=== PATIENT | male | born 1990 ===

== ENCOUNTER → 2020-08-09 08:06 | Outpatient (BNVA) | payer OTHER, SELFPAY | PROVIDERS: PCP Nurse Practitioner Family; Visit Provider Surgery ==

== ENCOUNTER → 2020-09-26 11:39 | Outpatient (BNVA) | payer OTHER, SELFPAY | PROVIDERS: PCP Nurse Practitioner Family; Visit Provider Physician Assistant ==

== ENCOUNTER 2020-09-27 07:54 | Outpatient (REF) | payer OTHER, SELFPAY ==
[2020-09-27 11:48] LABS: Alanine Aminotransferase 43 U/L (0-40); Albumin Level 4.4 g/dL (3.5-5.0); Alkaline Phosphatase 85 U/L (39-117); Anion Gap 15 (12-20); Aspartate Amino Transferase 22 U/L (5-37); Bilirubin Total 0.4 mg/dL (0.0-1.0); Blood Urea Nitrogen 17 mg/dL (9-16); Calcium 9.1 mg/dL (8.4-10.2); Carbon Dioxide 28 mmol/L (22-29); Chloride 102 mmol/L (96-108); Cholesterol 201 mg/dL; Estimated Glomerular Filt Rate > 60; Glucose Fasting 91 mg/dL (60-99); HDL Cholesterol 41 mg/dL; LDL Cholesterol Calculated 131 mg/dl; Potassium 4.6 mmol/L (3.3-5.1); Sodium 140 mmol/L (135-145); Total Protein 7.5 g/dL (6.5-8.0); Triglycerides 146 mg/dL
[2020-09-27 11:51] LABS: TSH reflex Free T4 1.57 uIU/mL (0.32-4.0)
== END 2020-09-27 07:55 | disposition home or self-care (01) ==
LOC: HO.HMGCLDS 07:54
PROVIDERS: PCP Nurse Practitioner Family; Visit Provider Nurse Practitioner Family
DX: Z00.00 Encounter for general adult medical examination without abnormal findings (principal); Z13.220 Encounter for screening for lipoid disorders; Z13.29 Encounter for screening for other suspected endocrine disorder
CPT/HCPCS: 36415; 80053; 80061; 84443

== ENCOUNTER → 2020-10-18 07:49 | Outpatient (BNVA) | payer OTHER, SELFPAY | PROVIDERS: PCP Nurse Practitioner Family; Visit Provider Surgery ==

== ENCOUNTER → 2022-06-16 08:35 | Outpatient (BNVA) | payer SELFPAY | PROVIDERS: PCP Nurse Practitioner Family; Visit Provider Internal Medicine | DX: Z02.79 Encounter for issue of other medical certificate (principal) ==

== ENCOUNTER → 2022-07-29 08:26 | Outpatient (REF) | payer OTHER, SELFPAY | LOC: HO.SL 08:26 | PROVIDERS: Visit Provider Nurse Practitioner Family | DX: G47.33 Obstructive sleep apnea (adult) (pediatric) (principal); R06.83 Snoring; R40.0 Somnolence; E66.01 Morbid (severe) obesity due to excess calories | CPT/HCPCS: 95806 ==

== ENCOUNTER 2022-08-19 07:56 | Outpatient (REF) | payer OTHER, SELFPAY ==
[2022-08-19 11:22] LABS: Appearance Urine Clear; Color Urine Yellow; Glucose Urine UA Negative (Negative); Leukocyte Esterase Urine Negative (Negative); Nitrite Urine Negative (Negative); Urine Blood Negative (Negative); Urine Ketones Negative (Negative); Urine Protein Negative (Neg-Trace)
[2022-08-19 11:24] LABS: MANUAL DIFF FLAG NO
[2022-08-19 11:42] LABS: Basophils Absolute Auto 0.1 X10*3/uL (0.0-0.2); Basophils Percent Auto 0.8 % (0-2); Eosinophils Absolute Auto 0.2 X10*3/uL (0.0-0.4); Eosinophils Percent Auto 1.8 % (0-4); Hematocrit 45.4 % (42.0-52.0); Hemoglobin 14.8 g/dl (14.0-18.0); Imm Gran Abs Auto 0.06 X10*3/uL (0.00-0.03); Imm Gran Pct Auto 0.6 % (0.0-0.4); Lymphocytes Absolute Auto 3.3 X10*3/uL (1.2-4.9); Lymphocytes Percent Auto 33.7 % (20-40); Mean Corpuscular HGB Conc 32.6 g/dl (31.0-36.0); Mean Corpuscular Hemoglobin 29.7 pg (27.0-33.0); Mean Platelet Volume 9.6 fL (9.4-12.4); Monocytes Absolute Auto 0.7 X10*3/uL (0.1-1.2); Monocytes Percent Auto 7.5 % (2-11); Neutrophils Absolute Auto 5.4 x10*3/uL (2.0-8.3); Neutrophils Percent Auto 55.6 % (45-73); Platelet Count 439 X10*3/uL (160-400); Red Blood Count 4.99 X10*6/uL (4.60-5.80); Red Cell Distribution Width 12.7 % (11.0-16.0); White Blood Count 9.7 X10*3/uL (4.8-10.8)
[2022-08-19 11:59] LABS: Alanine Aminotransferase 43 U/L (0-40); Albumin Level 4.4 g/dL (3.5-5.0); Alkaline Phosphatase 97 U/L (39-117); Anion Gap 11 (12-20); Aspartate Amino Transferase 24 U/L (5-37); Bilirubin Total 0.5 mg/dL (0.0-1.0); Blood Urea Nitrogen 16 mg/dL (9-16); Calcium 9.4 mg/dL (8.4-10.2); Carbon Dioxide 28 mmol/L (22-29); Chloride 104 mmol/L (96-108); Cholesterol 203 mg/dL; Estimated Glomerular Filt Rate > 60; Glucose Fasting 99 mg/dL (60-99); HDL Cholesterol 35 mg/dL; LDL Cholesterol Calculated 146 mg/dl; Potassium 4.3 mmol/L (3.3-5.1); Sodium 139 mmol/L (135-145); Total Protein 7.3 g/dL (6.5-8.0); Triglycerides 111 mg/dL
== END 2022-08-19 07:57 | disposition home or self-care (01) ==
LOC: HO.HMGCLDS 07:56
PROVIDERS: PCP Nurse Practitioner Family; Visit Provider Nurse Practitioner Family
DX: Z00.00 Encounter for general adult medical examination without abnormal findings (principal)
CPT/HCPCS: 36415; 80053; 80061; 81003; 84443; 85025

== ENCOUNTER 2022-08-27 10:23 | Outpatient (REF) | payer OTHER, SELFPAY ==
--- NOTE | ~2022-08-27 | US_ITS ---
EXAMINATION: US ABDOMEN COMPLETE CLINICAL INFORMATION: Abnormal levels of other serum enzymes. COMPARISON: None TECHNIQUE: Real-time imaging of the abdominal viscera. FINDINGS: PANCREAS: Obscured by bowel gas. ABDOMINAL AORTA: The proximal, mid, and distal segments are normal in caliber. INFERIOR VENA CAVA: Visualized portions are normal. LIVER: The liver is normal in size. The liver contour is normal. There is diffuse increased liver parenchymal echogenicity, consistent with hepatic steatosis with focal fatty sparing. No definite focal lesion is seen, but evaluation is limited due to poor sound beam penetration through the coarse echogenic liver parenchyma. There is no intrahepatic biliary duct dilatation seen. GALLBLADDER: Normal. The gallbladder is physiologically distended without evidence of stones, sludge, polyps, wall thickening or pericholecystic fluid. COMMON BILE DUCT: Normal in caliber measuring 0.3 cm in diameter. RIGHT KIDNEY: Normal. No hydronephrosis. No renal calculi or focal parenchymal lesions. The kidney measures 13.4 cm in maximum dimension. LEFT KIDNEY: Normal. No hydronephrosis. No renal calculi or focal parenchymal lesions. The kidney measures 12.8 cm in maximum dimension. SPLEEN: Normal. The spleen measures 13.8 cm in maximum dimension. FREE FLUID: None. US/US abdomen complete IMPRESSION: Marked hepatic steatosis.
== END 2022-08-27 10:24 | disposition home or self-care (01) ==
LOC: HO.HMGCX 10:23
PROVIDERS: PCP Nurse Practitioner Family; Visit Provider Nurse Practitioner Family
DX: R74.8 Abnormal levels of other serum enzymes (principal)
CPT/HCPCS: 76700

== ENCOUNTER → 2022-10-22 10:13 | Outpatient (BNVA) | payer OTHER, SELFPAY | PROVIDERS: PCP Nurse Practitioner Family; Visit Provider Nurse Practitioner Family | DX: R40.0 Somnolence (principal); R06.83 Snoring; E66.01 Morbid (severe) obesity due to excess calories ==

== ENCOUNTER 2023-02-05 08:52 | Outpatient (AMB) | payer OTHER, SELFPAY ==
--- NOTE | 2023-02-05 08:53 | A.OFFVIS_ITS ---
Intake Vital Signs 02/05/23 08:57 Weight 323 lb 6 oz BP 120/72 Blood Pressure Location Rt brachial Position Sitting Pulse 80 Pulse Source Pulse Oximeter Pulse Oximetry (%) 97 Oxygen Delivery Method Room Air Intake Visit Reasons: 3m follow up ÁLVARO Intake Note: F/U ÁLVARO Glove [employer] And Former Automatic Required: No Allergies No Known Allergies Allergy (Verified 02/05/23 08:53) HPI HPI Comments History of Present Illness Details 32 y/o male patient presents for follow up ÁLVARO on CPAP. The CPAP compliance and therapy response (11/07/22-02/04/23) reviwed with the patient. He is on APAP [id number]. The usage days 82% and the usage hours 4 hrs. The median pressure is 6.3 and the AHI was 2.1/hr. Pt reports that he feels more rested at night and sleeps well. He also tried to use CPAP while he watches TV to get used to it. His daytime tiredness has improved, he is more energetic,alert and physically active. His mood is also improved. Pt is in processing to have gastric sleeves. [facility] Medical History Hyperlipidemia Morbid obesity Surgical History Hx of circumcision Family History Father No problems noted. Mother Stroke Diabetes mellitus HTN (hypertension) Brother No problems noted. Brother No problems noted. Sister No problems noted. Social History Housing: Apartment Alcohol intake: current Alcohol intake frequency: holidays/special occasions only Patient Tobacco Use Status: Never used Tobacco e-Cigarette/Vaping Use: Never Used Second Hand Smoke Exposure: No service: No Current occupational status: employed Current occupation: [employer] Current occupational exposures/hazards: Yes Cognitive needs: No Hearing needs: No Vision needs: No Review of Systems Const All systems reviewed & are unremarkable except as noted in HPI and below ENT Reports Normal hearing present Neuro Reports Normal hearing present Physical Exam Vital Signs: Last Vital Signs Pulse 80 02/05/23 08:57 BP 120/72 02/05/23 08:57 Pulse Ox 97 02/05/23 08:57 Oxygen Delivery Method Room Air 02/05/23 08:57 Const General: cooperative and comfortable Nutritional Appearance: obese Orientation/consciousness: patient oriented x3 Limitations: no limitations HEENT Throat: Yes other (mallampati grade 4) Neck Neck: Yes full ROM and Yes supple Resp Effort & Inspection: normal respiratory effort and able to speak in complete sentences Neuro General: patient oriented x3, gait normal, moves all extremities and no focal motor deficits Cranial nerves: Yes Bilaterally intact EOM present, Yes Normal facial strength present, Yes Midline tongue present, Yes Symmetric palate elevation present, Yes Normal hearing present, Yes Ability to bilaterally rotate head present and Yes Ability to bilaterally elevate shoulders present Cognition (Neuro): normal cognition Gait exam (Neuro): Normal gait present Motor exam (neuro): 5/5 motor strength present throughout and Pronator motor function not present Psych Appearance: grossly normal Mental Status: mental status grossly normal Speech and movement: Normal speech and movement present Affect: normal affect Attitude: cooperative Assessment & Plan Assessment & Plan (1) Morbid obesity: Code(s): E66.01 - Morbid (severe) obesity due to excess calories (2) Snoring: Code(s): R06.83 - Snoring Plan Continue to use APAP [id number]. Stressed compliance, use CPAP nightly and more than 4 hours. Clean mask and tubing regularly. Sleep hygiene education provided. Manage diet and increase physical activity for wt loss. Coding Level of Care Code Est Pt Level 3 (71637) Diagnoses Morbid obesity E66.01 Snoring R06.83
[2023-02-05 08:57] VITALS: BP 120/72; PULSE 80; O2SAT 97
== END 2023-02-05 09:14 | disposition home or self-care (01) ==
PROVIDERS: Visit Provider Nurse Practitioner Family
DX: E66.01 Morbid (severe) obesity due to excess calories (principal); R06.83 Snoring
CPT/HCPCS: 99213

== ENCOUNTER → 2023-02-05 08:52 | Outpatient (BNVA) | payer OTHER, SELFPAY | PROVIDERS: Visit Provider Nurse Practitioner Family | DX: R40.0 Somnolence (principal); R06.83 Snoring; E66.01 Morbid (severe) obesity due to excess calories ==

== ENCOUNTER → 2023-04-14 13:51 | Outpatient (BNVA) | payer SELFPAY | PROVIDERS: PCP Nurse Practitioner Family; Visit Provider Physician Assistant | DX: Z02.79 Encounter for issue of other medical certificate (principal) ==

== ENCOUNTER 2024-02-07 08:51 | Outpatient (AMB) | payer OTHER, SELFPAY ==
--- NOTE | 2024-02-07 09:00 | MHC.OFFVIS ---
Vital Signs 02/07/24 09:04 Height 6 ft 3 in Weight 304 lb BMI 38.0 BP 122/84 Blood Pressure Location Rt brachial Position Sitting Pulse 86 Pulse Source Pulse Oximeter Pulse Oximetry (%) 99 Oxygen Delivery Method Room Air Intake Visit Reasons: 1yr follow up ÁLVARO-CONF Intake Note: Patient presents for 1 year follow up ÁLVARO. Patient has machine but has not been using it due to having a in the house. Allergies No Known Allergies Allergy (Verified 02/07/24 09:07) Medication List - Last Reconciled 02/07/24 by MARIO Pineda No Known Home Meds HPI Comments Details: 33-yr-old male presents for follow-up visit of sleep apnea. Pt underwent gastric sleeve at [facility] on January 25, 2024. He denies any post-op complications- other than some post-op N/V. He has not been using his CPAP as regulalry d/t the of his youngest dtr 2 months ago and the recent gastric sleeve surgery. He states overall he is sleeping better. Did not tolertae the full face mask. Does find the nasal mask more tolerable, but generally the APAP is a nuisance . Compliance Report Usage 12/24/2023 - 01/22/2024 Usage days 7/30 days (23%) Usage days >= 4 hours : 6 days (20%) Usage days < 4 hours 1 days (3%) AirSense 11 AutoSet Serial number [id number] Mode AutoSet Min Pressure 5 cmH2O Max Pressure 20 cmH2O EPR Fulltime EPR level 2 Response Standard Therapy Residual events per hour: AHI: 3.1. [facility] Medical History (Updated 02/07/24 @ 09:57 by MARIO Pineda) Hyperlipidemia Morbid obesity Surgical History (Updated 02/07/24 @ 09:57 by MARIO Pineda) H/O gastric sleeve Hx of circumcision Family History Father No problems noted. Mother Stroke Diabetes mellitus HTN (hypertension) Brother No problems noted. Brother No problems noted. Sister No problems noted. Social History Housing: Apartment Alcohol intake: current Alcohol intake frequency: holidays/special occasions only Patient Tobacco Use Status: Never used Tobacco e-Cigarette/Vaping Use: Never Used Second Hand Smoke Exposure: No service: No Current occupational status: employed Current occupation: [employer] Current occupational exposures/hazards: Yes Cognitive needs: No Hearing needs: No Vision needs: No Physical Exam Vital Signs: Last Vital Signs Pulse 86 02/07/24 09:04 BP 122/84 02/07/24 09:04 Pulse Ox 99 02/07/24 09:04 Oxygen Delivery Method Room Air 02/07/24 09:04 BMI result Body Mass Index 38.0 Const General: no acute distress Orientation/consciousness: patient oriented x3 HEENT Other: Mallampati stage Resp Effort & Inspection: normal respiratory effort and able to speak in complete sentences Auscultation: clear to auscultation bilaterally Cardio Rate: regular rate Rhythm: regular rhythm Neuro General: patient oriented x3 Psych Mental Status: mental status grossly normal Speech and movement: Clear speech present Attitude: cooperative Results Reviewed Results Reviewed: PAP compliance report- see HPI Assessment & Plan Assessment & Plan (1) Mild obstructive sleep apnea: Code(s): G47.33 - Obstructive sleep apnea (adult) (pediatric) Category: Medical Plan Continue APAP 5-20 cmH2O nightly > 4 hours, as pt continues to have good clinical effect from use.. Discussed that once pt loses 10% of body weight from when he had the sleep study when weight was 329 lbs, we can consider repeating HST to assess status of sleep apnea. Increase physical activity per surgery. Clean CPAP machine and supplies routinely. Change CPAP supplies routinely. Pt to contact us or respiratory company with any questions or concerns. Coding Level of Care Code Est Pt Level 3 (67935) Diagnoses Mild obstructive sleep apnea G47.33
[2024-02-07 09:04] VITALS: BP 122/84; PULSE 86; O2SAT 99; BMI 38.0
== END 2024-02-07 09:52 | disposition home or self-care (01) ==
PROVIDERS: PCP Nurse Practitioner Family; Visit Provider Nurse Practitioner Family
DX: G47.33 Obstructive sleep apnea (adult) (pediatric) (principal)
CPT/HCPCS: 99213

== ENCOUNTER → 2024-02-07 08:51 | Outpatient (BNVA) | payer OTHER, SELFPAY | PROVIDERS: PCP Nurse Practitioner Family; Visit Provider Nurse Practitioner Family | DX: R40.0 Somnolence (principal); R06.83 Snoring; E66.01 Morbid (severe) obesity due to excess calories ==

== ENCOUNTER → 2024-08-24 08:34 | Outpatient (BNVA) | payer OTHER, SELFPAY | PROVIDERS: PCP Nurse Practitioner Family ==

== ENCOUNTER → 2024-08-29 15:49 | Outpatient (AMB) | payer OTHER, SELFPAY ==
[2024-08-29 14:59] VITALS: BP 138/90; PULSE 96; O2SAT 99; BMI 37.4
--- NOTE | 2024-08-29 14:59 | MHC.OFFVIS ---
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 He had Gastric Bypass surgical procedure on January 2024, and he is now 299lbs, he was 333lbs prior to his surgery. He reports that he feels more rested at night and sleeps well. He goes to bed at 9:30pm and wakes up 6:00am, with zero bathroom breaks. His BP is elevated today at 138/90 will monitor. Denies grinding his teeth. Denies headaches. Denies RLS symptoms. Denies muscle cramps or spasms. His memory is good. He tries to use his CPAP, however never did get used to consistent use. His daytime tiredness has improved, he is more energetic, alert and physically active. He doesn't eat as much fast-food, now eats a protein shake in the morning and then one at lunch and a well balanced dinner. He is good at meal prepping and walks daily on his treadmill, about 1 hour daily and keeping track of his steps 15,000. His mood is also improved, though he lost some family members in a fire in [place], he declines counseling today. Denies smoking cigarettes, MJ, and alcohol. [facility] Medical History Hyperlipidemia Morbid obesity Surgical History H/O gastric sleeve Hx of circumcision Family History Father No problems noted. Mother Stroke Diabetes mellitus HTN (hypertension) Brother No problems noted. Brother No problems noted. Sister No problems noted. Social History Housing: Apartment Alcohol intake: current Alcohol intake frequency: holidays/special occasions only Patient Tobacco Use Status: Never used Tobacco e-Cigarette/Vaping Use: Never Used Second Hand Smoke Exposure: No service: No Current occupational status: employed Current occupation: [employer] Current occupational exposures/hazards: Yes Cognitive needs: No Hearing needs: No Vision needs: No Review of Systems Const All systems reviewed & are unremarkable except as noted in HPI and below Physical Exam Vital Signs: Last Vital Signs Pulse 96 08/29/24 14:59 BP 138/90 H 08/29/24 14:59 Pulse Ox 99 08/29/24 14:59 Oxygen Delivery Method Room Air 08/29/24 14:59 BMI result Body Mass Index 37.4 Const General: cooperative, comfortable and no acute distress Nutritional Appearance: obese (BMI 37.4) Orientation/consciousness: patient oriented x3 HEENT Face and sinus: Yes normal facial exam and Yes face symmetric Throat: Yes other ([place] score of 4) Eyes Pupils: Equal, round and reactive pupils present Neck Neck: Yes full ROM Resp Effort & Inspection: normal respiratory effort and able to speak in complete sentences Neuro General: patient oriented x3 Cranial nerves: Yes CN's II-XII intact bilaterally, Yes Facial sensation intact/muscles of mastication intact, Yes Equal, round and reactive pupils present, Yes Normal accommodation reflex present, Yes Bilaterally intact EOM present, Yes Nystagmus not present, Yes Normal facial strength present, Yes Midline tongue present, Yes Ability to bilaterally rotate head present and Yes Ability to bilaterally elevate shoulders present Motor exam (neuro): 5/5 motor strength present throughout Deep tendon reflexes (DTR's): Right triceps reflex intensity grade: 2+, Left triceps reflex intensity grade: 2+, Rt Biceps (C5, C6): 2+, Left biceps reflex intensity grade: 2+, Right brachioradialis reflex intensity grade: 2+, Left brachioradialis reflex intensity grade: 2+, Right patellar reflex intensity grade: 3+, Left patellar reflex intensity grade: 3+, Right ankle reflex intensity grade: 2+ and Left ankle reflex intensity grade: 2+ Psych Thought process: Normal thought process present Thought content: Normal thought content present Results Reviewed Results Reviewed: The CPAP compliance and therapy response (05/25/2024- 2024) reviewed with the patient. He is on APAP [id number] The usage days 20% and the usage hours 2 hrs and 16min. The pressures are 9-13, Leaks are 15 - 104, AHI is 13.6 Assessment & Plan Assessment & Plan (1) Snoring: Code(s): R06.83 - Snoring Category: Medical (2) Mild obstructive sleep apnea: Code(s): G47.33 - Obstructive sleep apnea (adult) (pediatric) Category: Medical Plan ÁLVARO and Snoring will evaluate with Home Sleep Study Labs to rule out deficiencies B12/ MMA/ Folate/ Homocysteine/ Iron/ Ferritin/ TSH/ Vit D Orders: Orders RT home sleep study Today G47.33 - Obstructive sleep apnea (adult) (pediatric) Vitamin B12 and Folate Today G47.33 - Obstructive sleep apnea (adult) (pediatric), R06.83 - Snoring Methylmalonic Acid Today G47.9 - Sleep disorder, unspecified, R53.83 - Other fatigue IRON PROFILE Today G47.9 - Sleep disorder, unspecified, R53.83 - Other fatigue Ferritin Today G47.33 - Obstructive sleep apnea (adult) (pediatric), R06.83 - Snoring Homocysteine Today G47.33 - Obstructive sleep apnea (adult) (pediatric), R06.83 - Snoring Patient Instructions: Sleep Hygiene is emphasized, set a regimented sleep and wake time, no devices in bed, no fluids 2 hours prior to sleep, may read a book in bed. May diffuses essential oils as needed to relax at night. Grief processing is available on [employer]. Snoring, may use nose strips and mouth tape if tolerable, or mouth guard to help close the mouth at night. Monitor BP as it is elevated today 138/90. HTN is the #1 modifiable risk factor to prevent cardiovascular events. Hyper-reflexes of the Lower Extremities on Exam, bilaterally patellar reflexes will r/o deficiencies with labs. F/U in 3 months Coding Level of Care Code Est Pt Level 4 (51137) Diagnoses Snoring R06.83 Mild obstructive sleep apnea G47.33 Time Spent (min) 30 Comment
== END | disposition home or self-care (01) ==
PROVIDERS: PCP Nurse Practitioner Family; Visit Provider Nurse Practitioner Family
DX: R06.83 Snoring (principal); G47.33 Obstructive sleep apnea (adult) (pediatric)
CPT/HCPCS: 99214

== ENCOUNTER 2024-09-12 12:26 | Outpatient (REF) | payer OTHER, SELFPAY ==
[2024-09-12 14:11] LABS: MANUAL DIFF FLAG NO
[2024-09-12 14:40] LABS: Basophils Absolute Auto 0.1 X10*3/uL (0.0-0.2); Basophils Percent Auto 0.5 % (0-2); Eosinophils Absolute Auto 0.2 X10*3/uL (0.0-0.4); Eosinophils Percent Auto 1.6 % (0-4); Hematocrit 43.7 % (42.0-52.0); Hemoglobin 14.6 g/dl (14.0-18.0); Imm Gran Abs Auto 0.04 X10*3/uL (0.00-0.03); Imm Gran Pct Auto 0.4 % (0.0-0.4); Lymphocytes Absolute Auto 3.2 X10*3/uL (1.2-4.9); Lymphocytes Percent Auto 28.9 % (20-40); Mean Corpuscular HGB Conc 33.4 g/dl (31.0-36.0); Mean Corpuscular Hemoglobin 30.2 pg (27.0-33.0); Mean Corpuscular Volume 90.5 fL (80.0-98.0); Mean Platelet Volume 9.3 fL (9.4-12.4); Monocytes Absolute Auto 0.6 X10*3/uL (0.1-1.2); Monocytes Percent Auto 5.8 % (2-11); Neutrophils Absolute Auto 6.9 x10*3/uL (2.0-8.3); Neutrophils Percent Auto 62.8 % (45-73); Platelet Count 399 X10*3/uL (160-400); Red Blood Count 4.83 X10*6/uL (4.60-5.80); Red Cell Distribution Width 12.9 % (11.0-16.0); White Blood Count 10.9 X10*3/uL (4.8-10.8)
[2024-09-12 14:41] LABS: Basophils Absolute Auto 0.1 X10*3/uL (0.0-0.2); Basophils Percent Auto 0.5 % (0-2); Eosinophils Absolute Auto 0.2 X10*3/uL (0.0-0.4); Eosinophils Percent Auto 1.5 % (0-4); Hematocrit 44.1 % (42.0-52.0); Hemoglobin 14.7 g/dl (14.0-18.0); Imm Gran Abs Auto 0.04 X10*3/uL (0.00-0.03); Imm Gran Pct Auto 0.4 % (0.0-0.4); Lymphocytes Absolute Auto 3.1 X10*3/uL (1.2-4.9); Lymphocytes Percent Auto 28.5 % (20-40); Mean Corpuscular HGB Conc 33.3 g/dl (31.0-36.0); Mean Corpuscular Hemoglobin 30.2 pg (27.0-33.0); Mean Corpuscular Volume 90.6 fL (80.0-98.0); Mean Platelet Volume 9.2 fL (9.4-12.4); Monocytes Absolute Auto 0.6 X10*3/uL (0.1-1.2); Monocytes Percent Auto 5.5 % (2-11); Neutrophils Percent Auto 63.6 % (45-73); Platelet Count 398 X10*3/uL (160-400); Red Blood Count 4.87 X10*6/uL (4.60-5.80); Red Cell Distribution Width 12.7 % (11.0-16.0); White Blood Count 10.9 X10*3/uL (4.8-10.8)
[2024-09-12 14:41] LABS: Appearance Urine Turbid; Color Urine Yellow; Glucose Urine UA Negative (Negative); Leukocyte Esterase Urine Negative (Negative); Nitrite Urine Negative (Negative); PH 8.5 (5.0-9.0); Specific Gravity - Urine 1.025 (1.005-1.025); UMIC TRIGGER UACC YES; Urine Blood Negative (Negative); Urine Ketones Negative (Negative); Urine Protein 30 (1+) mg/dL (Neg-Trace)
[2024-09-12 14:43] LABS: Bacteria Urine None Seen (None Seen); Hyaline Casts Urine 0-2 /LPF (0-2); RBC Urine 0-2 /HPF (0-2); Squamous Epithelial Cell Urine 0-2 /HPF (0-2); WBC Urine 0-5 /HPF (0-5)
[2024-09-12 15:12] LABS: Alanine Aminotransferase 45 U/L (0-40); Albumin Level 4.3 g/dL (3.5-5.0); Alkaline Phosphatase 87 U/L (39-117); Anion Gap 13 (12-20); Aspartate Amino Transferase 33 U/L (5-37); Bilirubin Total 0.9 mg/dL (0.0-1.0); Blood Urea Nitrogen 14 mg/dL (9-16); Calcium 9.5 mg/dL (8.4-10.2); Carbon Dioxide 28 mmol/L (22-29); Chloride 104 mmol/L (96-108); Estimated Glomerular Filt Rate > 60; Glucose Fasting 82 mg/dL (60-99); Sodium 141 mmol/L (135-145)
[2024-09-12 15:16] LABS: Albumin Level 4.4 g/dL (3.5-5.0); Alkaline Phosphatase 86 U/L (39-117); Anion Gap 11 (12-20); Aspartate Amino Transferase 36 U/L (5-37); Bilirubin Total 0.8 mg/dL (0.0-1.0); Blood Urea Nitrogen 15 mg/dL (9-16); Calcium 9.6 mg/dL (8.4-10.2); Carbon Dioxide 29 mmol/L (22-29); Chloride 105 mmol/L (96-108); Cholesterol 210 mg/dL (<200); Estimated Glomerular Filt Rate > 60; Glucose Fasting 83 mg/dL (60-99); HDL Cholesterol 42 mg/dL (>40); Iron 63 mcg/dL (45-160); LDL Cholesterol Calculated 141 mg/dL (<100); Percent Iron Saturation 24 % (15-50); Potassium 3.9 mmol/L (3.3-5.1); Sodium 141 mmol/L (135-145); Total Iron Binding Capacity 262 mcg/dL (228-428); Total Protein 8.1 g/dL (6.5-8.0); Triglycerides 136 mg/dL (<150); Unsaturated Iron Binding 199 ug/dL
[2024-09-12 15:29] LABS: TSH reflex Free T4 0.76 uIU/mL (0.32-4.0); Vitamin D 25-OH Total 17.5 ng/mL (>30)
[2024-09-12 15:34] LABS: Alanine Aminotransferase 44 U/L (0-40); Ferritin 218 ng/mL (20-250); TSH reflex Free T4 0.79 uIU/mL (0.32-4.0)
[2024-09-12 15:36] LABS: Folate 7.7 ng/mL (> or = 4.0); Vitamin B12 629 pg/mL (200-900)
[2024-09-13 16:57] LABS: IgA 389 mg/dL (47-310); IgG 1135 mg/dL (600-1640); IgM 109 mg/dL (50-300)
[2024-09-13 21:09] LABS: A. Phagocytphilium DNA,RT-PCR NOT DETECTED (NOT DETECTED); Babesia Microti DNA, RT-PCR NOT DETECTED (NOT DETECTED); Borrelia Miyamotoi,DNA RT-PCR NOT DETECTED (NOT DETECTED); E.Chaffeensis DNA RT-PCR NOT DETECTED (NOT DETECTED); Lyme(Borrelia ssp)DNA RT-PCR NOT DETECTED (NOT DETECTED)
[2024-09-13 21:48] LABS: Lyme Abs Screen <0.90 index
[2024-09-13 22:23] LABS: Prot Elec - Albumin 4.3 g/dL (3.8-4.8); Prot Elec - Alpha1 0.3 g/dL (0.2-0.3); Prot Elec - Alpha2 0.7 g/dL (0.5-0.9); Prot Elec - Beta 1 0.5 g/dL (0.4-0.6); Prot Elec - Beta 2 0.5 g/dL (0.2-0.5); Prot Elec - Total Protein 7.3 g/dL (6.1-8.1)
[2024-09-15 12:52] LABS: Hematocrit 43.8 % (38.5-50.0); Hemoglobin 14.9 g/dL (13.2-17.1); MCH 30.7 pg (27.0-33.0); MCV 90.3 fL (80.0-100.0); RBC 4.85 Million/uL (4.20-5.80); RDW 12.9 % (11.0-15.0)
[2024-09-15 19:48] LABS: Methylmalonic Acid 97 nmol/L (55-335)
[2024-09-16 15:39] LABS: Vitamin B6 78.3 ng/mL (2.1-21.7)
== END 2024-09-12 12:27 | disposition home or self-care (01) ==
LOC: HO.HMGCLDS 12:26
PROVIDERS: PCP Nurse Practitioner Family; Referring Provider Physician Assistant; Visit Provider Nurse Practitioner Family
DX: Z00.00 Encounter for general adult medical examination without abnormal findings (principal); M62.838 Other muscle spasm; M62.81 Muscle weakness (generalized); Z98.84 Bariatric surgery status
CPT/HCPCS: 36415; 80053; 80061; 81001; 82306; 82550; 82607; 82728; 82746; 82784; 83020; 83090; 83540; 83735; 83921; 84165; 84207; 84443; 85014; 85018; 85025; 85041; 86334; 86617; 86618; 87468; 87469; 87478; 87484; 87798; 96127

== ENCOUNTER 2024-09-12 12:26 | Outpatient (AMB) | payer OTHER, SELFPAY ==
[2024-09-12 12:36] VITALS: BP 130/82; PULSE 86; TEMP 36.6; O2SAT 97; BMI 36.7
--- NOTE | 2024-09-12 12:36 | A.OFFPC_ITS ---
Vital Signs 09/12/24 12:36 Height 6 ft 3 in Weight 294 lb BMI 36.7 BP 130/82 Blood Pressure Location Lt brachial Position Sitting Pulse 86 Pulse Source Pulse Oximeter Temp 97.9 F Temp Source Oral Pulse Oximetry (%) 97 Oxygen Delivery Method Room Air Intake Visit Reasons: PE w/ labs Accompanied by: Self / Same As Patient Allergies No Known Allergies Allergy (Verified 09/12/24 12:36) Medication List - Last Reconciled 09/12/24 by MARIO Krishnan- multivitamin (One-A-Day Essential tablet) 1 tab PO DAILY Tobacco use date assessed: 09/12/24 Dental Screening Dental Screen Date: 09/12/24 Did you have a dental visit in the last 12 months?: Yes Did you have a dental problem in the last 6 months where you did not have access to dental care?: No Was dental information given to patient?: Patient has dentist HPI PE w/ labs HPI Details History of Present Illness PE: The patient is a 34-year-old male presenting with muscle spasms and neuropathic symptoms following bariatric surgery. The patient underwent a bariatric gastric sleeve procedure in January 2024. Approximately two months prior to the visit, he began experiencing significant muscle spasms, primarily in his bilateral upper extremities, but also occasionally affecting his entire body. The spasms are reported as random in occurrence. Additionally, the patient notices numbness and tngling in both his upper and lower extremities, which he also describes as more general weakness. There is a concern about potential vitamin or electrolyte deficiencies, possibly as a complication from the gastric surgery. He denies associated chest pain, shortness of breath, nausea, vomiting, diarrhea, constipation, anxiety, or depression. The patient reports being in otherwise good health and has a follow-up appointment with his gastro/bariatric surgeon within one to two months. Health Maintenance Social History Review of Systems - Neurological: Reports significant spas ms in bilateral upper extremities and sometimes whole body, random in nature. Reports numbness and tingling in upper and lower extremities. Denies headaches, dizziness, syncope, or seizures. - Cardiovascular: Denies chest pain or p alpitations. - Respiratory: Denies shortness of breat h. - Gastrointestinal: Denies nausea, vomit ing, diarrhea, constipation. - Psychiatric: Denies anxiety or depress ion. - Musculoskeletal: Reports weakness in e xtremities. Physical Exam General: Cooperative, healthy appearing, comfortable, no acute distress and well developed, obese Orientation: Patient oriented x3 Limitations: No limitations Head: Normal to inspection Ears: Hearing grossly normal bilaterally Nose: Normal external nose present Face and sinus: Normal facial exam Eyes: Appearance normal, both eyes and all related structures Neck: Normal visual inspection and Yes full ROM Respiratory: Normal respiratory effort and able to speak in complete sentences. Clear to auscultation bilaterally Cardiovascular: Regular rate and rhythm. Normal S1 and S2 GI: Normal to inspection. Soft to palpation and nontender Skin: No rashes or lesions noted Neuro: Patient oriented x3. CN2 through 12 intact. Patellar reflex is equal b ilaterally. Positive reflex noted to elbow. Tricep reflex present. Extremities: Significant spasms, especially in bilateral upper extremities. Reports numbness and tenderness in upper and lower extremities. Describes more weakness in extremities. Normal to inspection. Results Plan - Initiate lab tests to assess for poten tial vitamin deficiencies and electrolyte imbalances contributing to the patient's muscle spasms and neuropathic symptoms. - Perform a physical examination focusin g on neurological status to investigate the presence of peripheral neuropathy. - Schedule and coordinate follow-up care with the gastro/bariatric surgeon to address and manage potential complications related to post-bariatric nutritional deficiencies. Discussion Notes During the consultation, I discussed with the patient the likelihood that his symptoms may be due to nutritional deficiencies post-bariatric surgery. We agreed on obtaining laboratory investigations to confirm any deficiencies, specifically looking into vitamin and electrolyte levels. I emphasized the importance of follow-up with his bariatric surgeon for ongoing management. I reassured the patient regarding the positive effect of addressing nutritional deficiencies on his current symptoms of spasms and neuropathy. We did not discuss any medication changes at this time. The patient was advised to monitor his symptoms and return if they worsen or persist despite intervention. Patient Instructions - Undergo recommended lab tests to check for vitamin and electrolyte imbalances. - Follow up with the gastro/bariatric toscano rgeon in the next month to two months for comprehensive management. - Monitor for any new or worsening sympt oms and seek medical care if needed. - Maintain adherence to any prescribed v itamin supplements or dietary recommendations provided by the surgeon. -any worsening symptoms, ER please [facility] Medical History Hyperlipidemia Morbid obesity Surgical History H/O gastric sleeve Hx of circumcision Family History Father No problems noted. Mother Stroke Diabetes mellitus HTN (hypertension) Brother No problems noted. Brother No problems noted. Sister No problems noted. Social History Housing: Apartment Alcohol intake: current Alcohol intake frequency: holidays/special occasions only Patient Tobacco Use Status: Never used Tobacco e-Cigarette/Vaping Use: Never Used Second Hand Smoke Exposure: No service: No Current occupational status: employed Current occupation: [employer] Current occupational exposures/hazards: Yes Cognitive needs: No Hearing needs: No Vision needs: No Questionnaire PHQ-9 Over the last 2 weeks, how often have you been bothered by any of the following problems? 1. Little interest or pleasure in doing things: several days 2. Feeling down, depressed, or hopeless: several days 3. Trouble falling or staying asleep, or sleeping too much: not at all 4. Feeling tired or having little energy: not at all 5. Poor appetite or overeating: several days 6. Feeling bad about yourself - or that you are a failure or have let yourself or your family down: not at all 7. Trouble concentrating on things, such as reading the newspaper or watching television: not at all 8. Moving or speaking so slowly that other people could have noticed. Or the opposite - being so fidgety or restless that you have been moving around a lot m ore than usual: not at all 9. Thoughts that you would be better off or of hurting yourself in some way: not at all Total score: 3 Depression Screening Interpretation: Negative Depression Screening Done: Yes 69395 - PHQ-9 Billing: Yes Source: Developed by Drs. Ronnie Anguiano, Megan Bradford, Laureano Shepard and colleagues, with an educational mary from [employer]. Thrive Questionnaire Date Thrive assessed: 09/05/24 I am a: Patient What is your living situation today?: I choose not to answer this question Within the past 12 months, did the food you bought not last and you didn't have the money to get more?: I choose not to answer this question Within the past 12 months, did you worry whether your food would run out before you got money to buy more?: I choose not to answer this question Do you have trouble paying for medicines?: I choose not to answer this question Do you have trouble getting transportation to medical appointments?: I choose not to answer this question Do you have trouble paying your heating and electricity bill?: I choose not to answer this question Do you have trouble taking care of your child, family member or friend?: I choose not to answer this question Do you have trouble with day-to-day activities such as bathing, preparing meals, shopping, managing finances, etc.?: I choose not to answer this question Are you currently unemployed and looking for a job?: I choose not to answer this question Are you interested in more education?: I choose not to answer this question Please select the resources that you would like help with: None Currently or been in a relationship where the following occur: I choose not to answer THRIVE Score: 0 AUDIT C Alcohol Use Questionnaire (AUDIT-C) 1. How often do you have a drink containing alcohol?: Never 3. How often do you have six or more drinks on one occasion?: Never Total Score: 0 Score Reviewed/Action Taken: Yes ELIEL-7 AMB Questionnaire ELIEL-7 Date ELIEL - 7 assessed: 09/12/24 Feeling nervous, anxious, or on edge: 0 = Not at all Not being able to stop or control worryin = Not at all Worrying too much about different things: 0 = Not at all Trouble relaxin = Not at all Being so restless that it is hard to sit still: 0 = Not at all Becoming easily annoyed or irritable: 0 = Not at all Feeling afraid as if something awful might happen: 0 = Not at all Total ELIEL-7 score (0-4 normal; 5-9 mild; 10-14 moderate; 15-21 severe): 0 Source: Developed by Drs. Ronnie Anguiano, Megan Bradford, Laureano Shepard and colleagues, with an educational mary from [employer]. ELIEL-7 Assessment Billing ELIEL-7 Assessment Tool: ELIEL-7 Assessment 06580 Physical exam (Primary Care) BMI result Body Mass Index 36.7 Tobacco/Smoking Status: Tobacco use Status Tobacco use date assessed 08/17/22 09/12/24 12:36 Patient Tobacco Use Status Never used Tobacco 09/12/24 12:36 e-Cigarette/Vaping Use Never Used 09/12/24 12:36 Depression Screening Interpretation: Negative Thrive Assessment: Date of Thrive Assessment Date Thrive assessed 09/05/24 09/12/24 12:36 Currently or been in a relationship where the following occur: I choose not to answer Coding Level of Care Code New Pt Prev Care 18-39yr([id number] Diagnoses Muscle spasms of both lower extremities M62.838 Physical exam Z00.00 Proximal muscle weakness M62.81 Additional Codes ELIEL-7 Assessment Billing - ELIEL-7 Assessment Tool: ELIEL-7 Assessment 29469 ([id number]) PHQ-9 - 41977 - PHQ-9 Billing: Yes ([id number]) Assessment & Plan Assessment & Plan (1) Muscle spasms of both lower extremities: Code(s): M62.838 - Other muscle spasm Category: Medical (2) Physical exam: Code(s): Z00.00 - Encounter for general adult medical examination without abnormal findings Category: Medical (3) Proximal muscle weakness: Code(s): M62.81 - Muscle weakness (generalized) Category: Medical Plan . Orders: Orders Comprehensive [place]. Panel Fast Today Z00.00 - Encounter for general adult medical examination without abnormal findings UA CC w/rflx Micro + Cult Today Z00.00 - Encounter for general adult medical examination without abnormal findings Lipid Panel Today Z00.00 - Encounter for general adult medical examination without abnormal findings Methylmalonic Acid Today M62.838 - Other muscle spasm Ferritin Today M62.838 - Other muscle spasm IRON PROFILE Today M62.838 - Other muscle spasm Creatine Kinase Total Today M62.838 - Other muscle spasm Magnesium Today M62.838 - Other muscle spasm Hemoglobin Electrophoresis Today M62.81 - Muscle weakness (generalized), M62.838 - Other muscle spasm Complete Blood Count Auto Diff Today Z00.00 - Encounter for general adult medical examination without abnormal findings TSH reflex Free T4 Today Z00.00 - Encounter for general adult medical examination without abnormal findings Vitamin B12 and Folate Today M62.838 - Other muscle spasm Homocysteine Today M62.838 - Other muscle spasm Vitamin B6 Today M6.838 - Other muscle spasm Immunofixation Pnl, Serum Today M6.81 - Muscle weakness (generalized), M6.838 - Other muscle spasm Protein Electrophoresis, Serum Today M6.81 - Muscle weakness (generalized), M6.838 - Other muscle spasm Tick-borne Disease Molecular Today M6.81 - Muscle weakness (generalized), M6.838 - Other muscle spasm Lyme IgG/IgM w/reflex to WB Today M6.81 - Muscle weakness (generalized), M6.838 - Other muscle spasm
== END 2024-09-12 13:01 | disposition home or self-care (01) ==
PROVIDERS: PCP Nurse Practitioner Family; Visit Provider Nurse Practitioner Family
DX: M62.838 Other muscle spasm (principal); Z00.00 Encounter for general adult medical examination without abnormal findings; M62.81 Muscle weakness (generalized)

== ENCOUNTER 2024-09-15 08:01 | Outpatient (REF) | payer OTHER, SELFPAY ==
[2024-09-15 10:24] LABS: MANUAL DIFF FLAG NO
[2024-09-15 10:31] LABS: Basophils Absolute Auto 0.1 X10*3/uL (0.0-0.2); Basophils Percent Auto 0.6 % (0-2); Eosinophils Absolute Auto 0.2 X10*3/uL (0.0-0.4); Eosinophils Percent Auto 1.9 % (0-4); Hemoglobin 14.4 g/dl (14.0-18.0); Imm Gran Abs Auto 0.04 X10*3/uL (0.00-0.03); Imm Gran Pct Auto 0.5 % (0.0-0.4); Lymphocytes Absolute Auto 2.4 X10*3/uL (1.2-4.9); Mean Corpuscular HGB Conc 33.5 g/dl (31.0-36.0); Mean Corpuscular Hemoglobin 30.3 pg (27.0-33.0); Mean Corpuscular Volume 90.5 fL (80.0-98.0); Mean Platelet Volume 9.9 fL (9.4-12.4); Monocytes Absolute Auto 0.5 X10*3/uL (0.1-1.2); Neutrophils Absolute Auto 5.3 x10*3/uL (2.0-8.3); Platelet Count 378 X10*3/uL (160-400); Red Blood Count 4.75 X10*6/uL (4.60-5.80); Red Cell Distribution Width 12.6 % (11.0-16.0); White Blood Count 8.5 X10*3/uL (4.8-10.8)
[2024-09-15 10:35] LABS: Appearance Urine Cloudy; Color Urine Yellow; Glucose Urine UA Negative (Negative); Leukocyte Esterase Urine Negative (Negative); Nitrite Urine Negative (Negative); PH 7.5 (5.0-9.0); Specific Gravity - Urine 1.025 (1.005-1.025); Urine Blood Negative (Negative); Urine Ketones Negative (Negative); Urine Protein Negative (Neg-Trace)
== END 2024-09-15 08:02 | disposition home or self-care (01) ==
LOC: HO.HMGCLDS 08:01
PROVIDERS: PCP Nurse Practitioner Family; Visit Provider Nurse Practitioner Family
DX: D72.829 Elevated white blood cell count, unspecified (principal); R80.9 Proteinuria, unspecified
CPT/HCPCS: 36415; 81003; 85025

== ENCOUNTER 2024-10-03 09:35 | Outpatient (REF) | payer OTHER, SELFPAY ==
[2024-10-03 13:48] LABS: Alanine Aminotransferase 39 U/L (0-40); Albumin Level 4.3 g/dL (3.5-5.0); Alkaline Phosphatase 83 U/L (39-117); Anion Gap 13 (12-20); Aspartate Amino Transferase 29 U/L (5-37); Bilirubin Total 0.7 mg/dL (0.0-1.0); Blood Urea Nitrogen 13 mg/dL (9-16); Calcium 9.5 mg/dL (8.4-10.2); Carbon Dioxide 28 mmol/L (22-29); Chloride 104 mmol/L (96-108); Estimated Glomerular Filt Rate > 60; Glucose Random 101 mg/dL (60-115); Potassium 4.2 mmol/L (3.3-5.1); Sodium 141 mmol/L (135-145); Total Protein 7.9 g/dL (6.5-8.0)
== END 2024-10-03 09:36 | disposition home or self-care (01) ==
LOC: HO.HMGCLDS 09:35
PROVIDERS: PCP Nurse Practitioner Family; Visit Provider Nurse Practitioner Family
DX: R74.8 Abnormal levels of other serum enzymes (principal)
CPT/HCPCS: 36415; 80053; 82550

== ENCOUNTER → 2024-10-26 14:42 | Outpatient (REF) | payer OTHER, SELFPAY | LOC: HO.SL 14:42 | PROVIDERS: PCP Nurse Practitioner Family; Visit Provider Physician Assistant Medical | DX: G47.33 Obstructive sleep apnea (adult) (pediatric) (principal) | CPT/HCPCS: 95806 ==

== ENCOUNTER → 2024-10-29 14:57 | Outpatient (BNV) | payer OTHER, SELFPAY | PROVIDERS: PCP Nurse Practitioner Family; Visit Provider Psychiatry & Neurology Neurology | DX: G47.33 Obstructive sleep apnea (adult) (pediatric) (principal) | CPT/HCPCS: 95806 ==

== ENCOUNTER 2024-12-01 08:03 | Outpatient (AMB) | payer OTHER, SELFPAY ==
--- NOTE | 2024-12-01 08:09 | MHC.OFFVIS ---
Vital Signs 12/01/24 08:10 Height 6 ft 3 in Weight 297 lb 8 oz BMI 37.2 BP 126/88 Blood Pressure Location Rt brachial Position Sitting Pulse 81 Pulse Source Pulse Oximeter Pulse Oximetry (%) 98 Oxygen Delivery Method Room Air Intake Visit Reasons: 3mon follow-up Intake Note: Patient presents follow up ÁLVARO. Labs/HST in chart(AHI-5, TEVIN 82%. Trial AutoPAP 5-20cm water). Allergies No Known Allergies Allergy (Verified 12/01/24 08:15) HPI Comments Details: 34 y/o male patient presents for follow up ÁLVARO he is on CPAP therapy. He had gastric bypass sleeve on January 2024, and he is now 297lbs, he used to weigh 333lbs prior to his surgery, now he feels more rested at night and sleeps well. He goes to bed at 9:30pm and wakes up 6:00am, with zero bathroom breaks. His BP is elevated today at 138/90 will monitor. Denies bruxism, or morning headaches. Denies RLS symptoms. Denies muscle cramps or spasms. His memory is good. He tries to use his CPAP, however he has difficulty using it consistently as he is not used to it, despite multiple attempts. He feels more energetic and alert since using the cpap, he is more physically active and actually started walking on the treadmill with a goal of 15,000 steps daily. He doesn't eat fast-food anymore, now he focuses on meal planning and has a protein shake in the morning, then one at lunch and a well balanced dinner with vegetables and proteins. His mood has improved, and memory is stable. Denies smoking cigarettes, MJ, and alcohol. [facility] Medical History Hyperlipidemia Morbid obesity Surgical History H/O gastric sleeve Hx of circumcision Family History Father No problems noted. Mother Stroke Diabetes mellitus HTN (hypertension) Brother No problems noted. Brother No problems noted. Sister No problems noted. Social History (Reviewed 12/04/24 @ 21:45 by ZHAO Amato Housing: Apartment Alcohol intake: current Alcohol intake frequency: holidays/special occasions only Patient Tobacco Use Status: Never used Tobacco e-Cigarette/Vaping Use: Never Used Second Hand Smoke Exposure: No service: No Current occupational status: employed Current occupation: [employer] Current occupational exposures/hazards: Yes Cognitive needs: No Hearing needs: No Vision needs: No Physical Exam Vital Signs: Last Vital Signs Pulse 81 12/01/24 08:10 BP 126/88 12/01/24 08:10 Pulse Ox 98 12/01/24 08:10 Oxygen Delivery Method Room Air 12/01/24 08:10 BMI result Body Mass Index 37.2 Const General: cooperative and comfortable Nutritional Appearance: obese Orientation/consciousness: patient oriented x3 Eyes Pupils: Equal, round and reactive pupils present Neck Neck: Yes full ROM Resp Effort & Inspection: normal respiratory effort and able to speak in complete sentences Neuro General: patient oriented x3 and moves all extremities Cranial nerves: Yes Facial sensation intact/muscles of mastication intact, Yes Equal, round and reactive pupils present, Yes Normal accommodation reflex present, Yes Normal facial strength present, Yes Midline tongue present, Yes Ability to bilaterally rotate head present and Yes Ability to bilaterally elevate shoulders present Cognition (Neuro): normal cognition Gait exam (Neuro): Normal gait present Motor exam (neuro): 5/5 motor strength present throughout and Normal motor muscle tone present throughout Psych Appearance: grossly normal Insight: Good insight present (Psych) Judgement: Good judgement present (Psych) Results Reviewed Results Reviewed: The CPAP compliance and therapy response (05/25/2024- 2024) reviewed with the patient. He is on APAP [id number] The usage days 20% and the usage hours 2 hrs and 16min. The pressures are 9-13, Leaks are 15 - 104, AHI is 13.6 Assessment & Plan Assessment & Plan (1) ÁLVARO (obstructive sleep apnea): Code(s): G47.33 - Obstructive sleep apnea (adult) (pediatric) Category: Medical (2) Nasal polyps: Code(s): J33.9 - Nasal polyp, unspecified Category: Medical (3) Morbid obesity: Code(s): E66.01 - Morbid (severe) obesity due to excess calories Category: Medical Plan HST mild ÁLVARO AHI is 5 and O2 Tevin to 82% start cpap at [id number] and f/u for compliance. Fatigue reviewed labs with patient today vit d is low, start daily vit d, B6 is elevated, take B6 every other day. Obesity labs for Cholesterol is 210 and LDL is 141, continue daily walking for 30 min as tolerable. ENT referral for Nasal polyps? Orders: Referrals Ear/Nose/Throat Referral J33.9 - Nasal polyp, unspecified Patient Instructions: Sleep Hygiene provided: set a scheduled bedtime and wake time to help regulate the circadian rhythm and balance the release of pituitary hormones. Sleep in a dark room, temperatures below 68 degrees, and no devices n bed. Limit caffeinated products 6 hours prior to bed, and limit fluids 2-4 hours prior to bed. Gentle night yoga, diffusing essential oils, and playing soft music can be relaxing. Wash mask, rinse hoses and replace filters as needed, fill reservoir with distilled water. F/u in 4 months for compliance. Coding Level of Care Code Est Pt Level 4 (93483) Diagnoses ÁLVARO (obstructive sleep apnea) G47.33 Nasal polyps J33.9 Morbid obesity E66.01
[2024-12-01 08:10] VITALS: BP 126/88; PULSE 81; O2SAT 98; BMI 37.2
== END 2024-12-01 08:43 | disposition home or self-care (01) ==
LOC: HO.HSMS 08:04
PROVIDERS: PCP Nurse Practitioner Family; Visit Provider Physician Assistant Medical
DX: G47.33 Obstructive sleep apnea (adult) (pediatric) (principal); J33.9 Nasal polyp, unspecified; E66.01 Morbid (severe) obesity due to excess calories
CPT/HCPCS: 99214

== ENCOUNTER → 2024-12-01 08:03 | Outpatient (BNVA) | payer OTHER, SELFPAY | PROVIDERS: PCP Nurse Practitioner Family; Visit Provider Physician Assistant Medical ==

== ENCOUNTER 2025-03-14 13:53 | Outpatient (AMB) | payer OTHER, SELFPAY ==
[2025-03-14 13:55] VITALS: BP 126/88; PULSE 71; RESP 16; O2SAT 98; BMI 38.5
--- NOTE | 2025-03-14 13:55 | MHC.PC.OV ---
Vital Signs 03/14/25 13:55 Height 6 ft 3 in Weight 308 lb BMI 38.5 BP 126/88 Blood Pressure Location Lt brachial Position Sitting Respiration 16 Pulse 71 Pulse Source Pulse Oximeter Pulse Oximetry (%) 98 Oxygen Delivery Method Room Air Intake Visit Reasons: 6 months f/up Foam [employer] M[employer] Required: No Accompanied by: Self / Same As Patient Allergies No Known Allergies Allergy (Verified 12/01/24 08:15) Medication List - Last Reconciled 03/14/25 by JACK KrishnanPJef cholecalciferol (vitamin D3) 50 mcg PO DAILY multivitamin (One-A-Day Essential tablet) 1 tab PO DAILY Tobacco use date assessed: 03/14/25 Dental Screening Dental Screen Date: 03/14/25 Did you have a dental visit in the last 12 months?: Yes Did you have a dental problem in the last 6 months where you did not have access to dental care?: No Was dental information given to patient?: Patient has dentist HPI 6 months f/up HPI Details Chief Complaint The patient is concerned about weight regain following bariatric surgery. History of Present Illness The patient is a 34-year-old male presenting for weight management and evaluation of potential GLP-1 agonist therapy. He has a history of morbid obesity and underwent a bariatric sleeve procedure in January 2024 at [facility]. Initially, he experienced significant weight loss post-surgery. However, following a traumatic event involving a miscarriage with his partner, he regained a significant amount of weight back. Currently, he is focused on losing weight again and is attending a weight loss clinic. There is consideration for starting him on a GLP-1 agonist, which is deemed suitable as he has no history of pancreatitis or thyroid carcinoma. His blood pressure remains stable, although the diastolic is noted to be 88 mmHg. Social History - Family status: Experienced a traumatic event involving a miscarriage with his partner. - Weight management: Currently attending a weight loss clinic. Health Maintenance - Potential initiation of GLP-1 agonist therapy for weight management. Review of Systems - Cardiovascular: Denies chest pain. - Respiratory: Denies dyspnea. - Neurological: Denies headaches, blurred vision, dizziness. Physical Exam General: Cooperative, healthy appearing, comfortable, no acute distress and well developed, obese Orientation: Patient oriented x3 Limitations: No limitations Head: Normal to inspection Ears: Hearing grossly normal bilaterally Nose: Normal external nose present Face and sinus: Normal facial exam Eyes: Appearance normal, both eyes and all related structures Neck: Normal visual inspection and Yes full ROM Respiratory: Normal respiratory effort and able to speak in complete sentences. Clear to auscultation bilaterally Cardiovascular: Regular rate and rhythm. Normal S1 and S2 GI: Normal to inspection. Soft to palpation and nontender Skin: No rashes or lesions noted Neuro: Patient oriented x3 Extremities: Normal to inspection Results Plan 1. Morbid Obesity The patient is being considered for GLP-1 agonist therapy to aid in weight management. He is currently attending a weight loss clinic, and labs will be conducted to monitor his cholesterol levels. 2. Post-Bariatric Surgery Status The patient underwent a bariatric sleeve procedure in January 2024 and initially experienced significant weight loss. However, he has since regained weight following a traumatic event. Discussion Notes I discussed with the patient the potential benefits of starting GLP-1 agonist therapy for weight management, considering his history of morbid obesity and post-bariatric surgery status. We also talked about the importance of regular monitoring of his cholesterol levels and maintaining stable blood pressure. Patient Instructions - Continue attending the weight loss clinic for ongoing support and management. - Increase water intake as part of weight management strategy. - Follow up for lab tests to monitor cholesterol levels. [facility] Medical History Hyperlipidemia Morbid obesity Surgical History H/O gastric sleeve Hx of circumcision Family History Father No problems noted. Mother Stroke Diabetes mellitus HTN (hypertension) Brother No problems noted. Brother No problems noted. Sister No problems noted. Social History Housing: Apartment Alcohol intake: current Alcohol intake frequency: holidays/special occasions only Patient Tobacco Use Status: Never used Tobacco e-Cigarette/Vaping Use: Never Used Second Hand Smoke Exposure: No service: No Current occupational status: employed Current occupation: [employer] Current occupational exposures/hazards: Yes Cognitive needs: No Hearing needs: No Vision needs: No Questionnaire PHQ-9 Over the last 2 weeks, how often have you been bothered by any of the following problems? 1. Little interest or pleasure in doing things: not at all 2. Feeling down, depressed, or hopeless: not at all 3. Trouble falling or staying asleep, or sleeping too much: not at all 4. Feeling tired or having little energy: not at all 5. Poor appetite or overeating: not at all 6. Feeling bad about yourself - or that you are a failure or have let yourself or your family down: not at all 7. Trouble concentrating on things, such as reading the newspaper or watching television: not at all 8. Moving or speaking so slowly that other people could have noticed. Or the opposite - being so fidgety or restless that you have been moving around a lot more than usual: not at all 9. Thoughts that you would be better off or of hurting yourself in some way: not at all Total score: 0 Depression Screening Interpretation: Negative Depression Screening Done: Yes 32249 - PHQ-9 Billing: Yes Source: Developed by Drs. Ronnie Anguiano, Megan Bradford, Laureano Shepard and colleagues, with an educational mary from [email or web address]. Thrive Questionnaire Date Thrive assessed: 09/05/24 I am a: Patient What is your living situation today?: I choose not to answer this question Within the past 12 months, did the food you bought not last and you didn't have the money to get more?: I choose not to answer this question Within the past 12 months, did you worry whether your food would run out before you got money to buy more?: I choose not to answer this question Do you have trouble paying for medicines?: I choose not to answer this question Do you have trouble getting transportation to medical appointments?: I choose not to answer this question Do you have trouble paying your heating and electricity bill?: I choose not to answer this question Do you have trouble taking care of your child, family member or friend?: I choose not to answer this question Do you have trouble with day-to-day activities such as bathing, preparing meals, shopping, managing finances, etc.?: I choose not to answer this question Are you currently unemployed and looking for a job?: I choose not to answer this question Are you interested in more education?: I choose not to answer this question Please select the resources that you would like help with: None Currently or been in a relationship where the following occur: I choose not to answer THRIVE Score: 0 AUDIT C Alcohol Use Questionnaire (AUDIT-C) 2. How many drinks containing alcohol do you have on a typical day when you are drinking?: 1 or 2 Total Score: 0 Score Reviewed/Action Taken: Yes ELIEL-7 AMB Questionnaire ELIEL-7 Date ELIEL - 7 assessed: 03/14/25 Feeling nervous, anxious, or on edge: 0 = Not at all Not being able to stop or control worryin = Not at all Worrying too much about different things: 0 = Not at all Trouble relaxin = Not at all Being so restless that it is hard to sit still: 0 = Not at all Becoming easily annoyed or irritable: 0 = Not at all Feeling afraid as if something awful might happen: 0 = Not at all Total ELIEL-7 score (0-4 normal; 5-9 mild; 10-14 moderate; 15-21 severe): 0 Source: Developed by Drs. Ronnie Anguiano, Megan Bradford, Laureano Shepard and colleagues, with an educational mary from [email or web address]. LEIEL-7 Assessment Billing ELIEL-7 Assessment Tool: ELIEL-7 Assessment 62593 Physical exam (Primary Care) Vital Signs: Last Vital Signs Pulse 71 03/14/25 13:55 Resp 16 03/14/25 13:55 BP 126/88 03/14/25 13:55 Pulse Ox 98 03/14/25 13:55 Oxygen Delivery Method Room Air 03/14/25 13:55 BMI result Body Mass Index 38.5 Tobacco/Smoking Status: Tobacco use Status Tobacco use date assessed 03/14/25 03/14/25 14:00 Patient Tobacco Use Status Never used Tobacco 03/14/25 14:00 e-Cigarette/Vaping Use Never Used 03/14/25 14:00 PHQ-9: PHQ-9 Score PHQ-9: Total score 0 03/14/25 14:00 Depression Screening Interpretation: Negative Thrive Assessment: Date of Thrive Assessment Date Thrive assessed 09/05/24 03/14/25 14:00 Currently or been in a relationship where the following occur: I choose not to answer Coding Level of Care Code Est Pt Level 3 (48168) Diagnoses Hyperlipidemia E78.5 H/O gastric sleeve Z90.3 Additional Codes ELIEL-7 Assessment Billing - ELIEL-7 Assessment Tool: ELIEL-7 Assessment 71000 ([id number]) PHQ-9 - 98147 - PHQ-9 Billing: Yes ([id number]) Assessment & Plan Assessment & Plan (1) Hyperlipidemia: Code(s): E78.5 - Hyperlipidemia, unspecified Category: Medical (2) H/O gastric sleeve: Comment: January 2024 at [facility]. Code(s): Z90.3 - Acquired absence of stomach [part of] Category: Surgical Plan . Orders: Orders Complete Blood Count Auto Diff Today E78.5 - Hyperlipidemia, unspecified Comprehensive [place]. Panel Fast Today E78.5 - Hyperlipidemia, unspecified TSH reflex Free T4 Today E78.5 - Hyperlipidemia, unspecified UA CC w/rflx Micro + Cult Today E78.5 - Hyperlipidemia, unspecified Lipid Panel Today E78.5 - Hyperlipidemia, unspecified
--- OUTSIDE RECORDS SUMMARY | 2025-03-14 14:47 | XMS_ITS | Patient Health Record ---
Author Organization [facility] [address] Address [address] [place] [address] Care Team Providers Care Cable Tender Name Role Phone YUDY TEJADA Unavailable [phone] Allergies No Known Allergies Reason For Referral No Information Medications Medication SIG (Take, Route, Frequency, Duration) Notes Start Date End Date Status Vitamin D3 50 MCG (1999) TAKE 1 CAPSULE BY MOUTH EVERY DAY Oral; Duration: 90 Days Active Social History Tobacco Use: Social History Observation Description Date Details (start date - stop date) Never Smoker NA - NA Tobacco Control (Standard) Question Answer Notes Tobacco use: Nonsmoker AUDIT-C (Standard) Question Answer Notes Did you have a drink containing alcohol in the p ast year? No Points 0 Interpretation Negative Section Notes: Occupation: Clinical Ob Occupation: Clinical Ob Problems Problem Type SNOMED Code ICD Code Onset Dates Problem Status W/U Status Risk Notes Problem Morbid obesity (234680416) Morbid obesity (E66.01) Active confirmed Problem Vitamin D deficiency (75684861) Vitamin D deficiency (E55.9) Active confirmed Problem Body mass index 40+ - morbidly obese (872891288) BMI 40.0-44.9, adult (Z68.41) Active confirmed Problem Obstructive sleep apnea syndrome (04612363) ÁLVARO on CPAP (G47.33) Active confirmed Problem History of bariatric surgery (292084967) History of bariatric surgery (Z98.84) Active confirmed Vital Signs Heart Rate 79 /min 03/07/2025 Oximetry 98 % 03/07/2025 Blood pressure diastolic 82 mm Hg 03/07/2025 Height 70 in 03/07/2025 Blood pressure systolic 134 mm Hg 03/07/2025 Weight 301.2 lbs 03/07/2025 BMI 43.21 kg/m2 03/07/2025 Encounters Encounter Location Date Provider Diagnosis [facility] [address] [address] 02/09/2025 YUDY TERRY Morbid obesity E66.0 1 ; BMI 40.0-44.9, adult Z68.41 ; History of bariatric surgery Z98.84 ; ÁLVARO on CPAP G47.33 ; Vitamin D deficiency E55.9 ; Elevated BP without diagnosis of hypertension R03.0 and Nutritional counseling Z71.3 [facility] [address] [address] 03/07/2025 YUDY TERRY Morbid obesity E66.0 1 ; BMI 40.0-44.9, adult Z68.41 ; History of bariatric surgery Z98.84 ; ÁLVARO on CPAP G47.33 ; Vitamin D deficiency E55.9 ; Elevated BP without diagnosis of hypertension R03.0 and Nutritional counseling Z71.3 [facility] [address] [address] 02/09/2025 YUDY TERRY [facility] [address] [place] [address] 02/09/2025 [facility] Morbid obesity E66.0 1 [facility] [address] [address] 03/07/2025 YUDY TERRY [facility] [address] [address] 02/13/2025 YUDY TERRY Assessments Encounter Date Diagnosis (ICD Code) Assessment Notes Treatment Notes Treatment Clinical Notes Section Notes 02/09/2025 Morbid obesity (ICD-10 - E66.01) Charlie is a 34-year-old male with a H ÁLVARO, history of bariatric surgery that presents for weight management consult. Patient was reassured and welcomed to the practice. Discussed [facility] holistic and medical approach to weight loss with emphasis on lifestyle modification. Patient is educated that a healthy lifestyle aids in combating obesity as well as reducing the risk of developing obesity-related medical complications including but not limited to diabetes and cardiovascular disease. Detailed education provided about taking steps to initiate sustainable lifestyle changes including incorporating regular physical activity, making healthy diet choices, and prioritizing mental health. Information provided about literature including The Food Rules by Carlo Kendall and Eat Fat Get Lean by Dr Chris Moran. Handouts including lifestyle checklist, protein content of food, low calorie snacks, and cholesterol information sheet provided. Diagnostic testing/ SECA scale offered. Discussed the importance of regular SECA scale measurements to ensure healthy weight loss. 02/09/2025: Weight: 304, BMI: 43.6. Reviewed SECA/goals for implementing sustainable lifestyle changes. Patient is encouraged to increase physical activity, goal 8-10k steps/day. Also discussed the importance of strength training with proper safety/body mechanics for maintenance of muscle mass/bone health. Patient encouraged to drink 60-80oz water/day. Reviewed nutrition, recommending food diary x 1 week to ensure adequate caloric/protein intake. Goal of 80-100g protein/day. Reviewed risks, benefits, and side effects of weight management medications including phentermine, Topamax, Contrave, metformin, and GLP-1 agonist. Patient interested in GLP/GIP agonist Zepbound/family history of medullary thyroid cancer/M EN syndrome. Rx for Zepbound 2.5 mg SC weekly sent to pharmacy. Reviewed proper use, administration, and expectations for PA process/insurance coverage. After consultation and careful review of medical history, this patient would benefit from Zepbound based off of the following criteria met: Patient is over the age of 18 with a BMI of 43.6. Additional comorbidities include ÁLVARO. Patient has trialed other methods of weight loss including improving diet and exercise and bariatric surgery without success. This medication is prescribed by or in consultation with a board-certified obesity and weight management physician (Dr. Jovita Ann or Dr. Yady Ann). All questions answered to the patients satisfaction. Patient demonstrates understanding of diagnosis and treatments discussed. Follow-up at next scheduled appointment, sooner should any questions/concerns arise. Case discussed with collaborating physician Shoaib Ann who has reviewed the assessment/plan. Chart, medications, labs, and vital signs reviewed. Dictation completed with the use of [employer] voice recognition software, prone to medical misidentifications and grammatical errors. All errors are unintentional. Although the practitioner does try to identify and correct errors, some may be present. Please do not hesitate to contact the practitioner for clarification. Total time was 60 minutes spent with greater than 50% on coordination of care and patient education. 02/09/2025 BMI 40.0-44.9, adult (ICD-10 - Z68.41) Charlie is a 34-year-old male with a PMH ÁLVARO, history of bariatric surgery that presents for weight management consult. Patient was reassured and welcomed to the practice. Discussed [facility] holistic and medical approach to weight loss with emphasis on lifestyle modification. Patient is educated that a healthy lifestyle aids in combating obesity as well as reducing the risk of developing obesity-related medical complications including but not limited to diabetes and cardiovascular disease. Detailed education provided about taking steps to initiate sustainable lifestyle changes including incorporating regular physical activity, making healthy diet choices, and prioritizing mental health. Information provided about literature including The Food Rules by Carlo Kendall and Eat Fat Get Lean by Dr Chris Moran. Handouts including lifestyle checklist, protein content of food, low calorie snacks, and cholesterol information sheet provided. Diagnostic testing/ SECA scale offered. Discussed the importance of regular SECA scale measurements to ensure healthy weight loss. 02/09/2025: Weight: 304, BMI: 43.6. Reviewed SECA/goals for implementing sustainable lifestyle changes. Patient is encouraged to increase physical activity, goal 8-10k steps/day. Also discussed the importance of strength training with proper safety/body mechanics for maintenance of muscle mass/bone health. Patient encouraged to drink 60-80oz water/day. Reviewed nutrition, recommending food diary x 1 week to ensure adequate caloric/protein intake. Goal of 80-100g protein/day. Reviewed risks, benefits, and side effects of weight management medications including phentermine, Topamax, Contrave, metformin, and GLP-1 agonist. Patient interested in GLP/GIP agonist Zepbound/family history of medullary thyroid cancer/M EN syndrome. Rx for Zepbound 2.5 mg SC weekly sent to pharmacy. Reviewed proper use, administration, and expectations for PA process/insurance coverage. After consultation and careful review of medical history, this patient would benefit from Zepbound based off of the following criteria met: Patient is over the age of 16 with a BMI of 43.6. Additional comorbidities include ÁLVARO. Patient has trialed other methods of weight loss including improving diet and exercise and bariatric surgery without success. This medication is prescribed by or in consultation with a board-certified obesity and weight management physician (Dr. Jovita Ann or Dr. Yady Ann). All questions answered to the patients satisfaction. Patient demonstrates understanding of diagnosis and treatments discussed. Follow-up at next scheduled appointment, sooner should any questions/concerns arise. Case discussed with collaborating physician Shoaib Ann who has reviewed the assessment/plan. Chart, medications, labs, and vital signs reviewed. Dictation completed with the use of [employer] voice recognition software, prone to medical misidentifications and grammatical errors. All errors are unintentional. Although the practitioner does try to identify and correct errors, some may be present. Please do not hesitate to contact the practitioner for clarification. Total time was 60 minutes spent with greater than 50% on coordination of care and patient education. 03/07/2025 Morbid obesity (ICD-10 - E66.01) Charlie is a 34-year-old male with a PMH ÁLVARO, history of bariatric surgery that presents for weight management follow up. Reviewed [facility] holistic and medical approach to weight loss with emphasis on lifestyle modification. 03/07/2025: Weight: 301, BMI: 43.2 (-3lbs) SECA reviewed, reveals 2 pounds of muscle loss and 1 pound of fat loss. Reviewed the importance of adequate caloric intake in the setting of GLP-1 induced appetite suppression. He is encouraged to continue hydrating adequately and exercising regularly. Discussed importance of adding strength training with goal of continued maintenance of muscle mass. Will attempt to appeal denial of GLP-1 and follow-up in 1 month. 02/09/2025: Weight: 304, BMI: 43.6. All questions answered to the patients satisfaction. Patient demonstrates understanding of diagnosis and treatments discussed. Follow-up at next scheduled appointment, sooner should any questions/concerns arise. Case discussed with collaborating physician Shoaib Ann who has reviewed the assessment/plan. Chart, medications, labs, and vital signs reviewed. Dictation completed with the use of [employer] voice recognition software, prone to medical misidentifications and grammatical errors. All errors are unintentional. Although the practitioner does try to identify and correct errors, some may be present. Please do not hesitate to contact the practitioner for clarification. Total time was 30 minutes spent with greater than 50% on coordination of care and patient education. 03/07/2025 BMI 40.0-44.9, adult (ICD-10 - Z68.41) Charlie is a 34-year-old male with a PMH ÁLVARO, history of bariatric surgery that presents for weight management follow up. Reviewed [facility] holistic and medical approach to weight loss with emphasis on lifestyle modification. 03/07/2025: Weight: 301, BMI: 43.2 (-3lbs) SECA reviewed, reveals 2 pounds of muscle loss and 1 pound of fat loss. Reviewed the importance of adequate caloric intake in the setting of GLP-1 induced appetite suppression. He is encouraged to continue hydrating adequately and exercising regularly. Discussed importance of adding strength training with goal of continued maintenance of muscle mass. Will attempt to appeal denial of GLP-1 and follow-up in 1 month. 02/09/2025: Weight: 304, BMI: 43.6. All questions answered to the patients satisfaction. Patient demonstrates understanding of diagnosis and treatments discussed. Follow-up at next scheduled appointment, sooner should any questions/concerns arise. Case discussed with collaborating physician Shoaib Ann who has reviewed the assessment/plan. Chart, medications, labs, and vital signs reviewed. Dictation completed with the use of [employer] voice recognition software, prone to medical misidentifications and grammatical errors. All errors are unintentional. Although the practitioner does try to identify and correct errors, some may be present. Please do not hesitate to contact the practitioner for clarification. Total time was 30 minutes spent with greater than 50% on coordination of care and patient education. 02/09/2025 History of bariatric surgery (ICD-10 - Z98.84) Charlie is a 34-year-old male with a PMH ÁLVARO, history of bariatric surgery that presents for weight management consult. Patient was reassured and welcomed to the practice. Discussed [facility] holistic and medical approach to weight loss with emphasis on lifestyle modification. Patient is educated that a healthy lifestyle aids in combating obesity as well as reducing the risk of developing obesity-related medical complications including but not limited to diabetes and cardiovascular disease. Detailed education provided about taking steps to initiate sustainable lifestyle changes including incorporating regular physical activity, making healthy diet choices, and prioritizing mental health. Information provided about literature including The Food Rules by Carlo Kendall and Eat Fat Get Lean by Dr Chris Moran. Handouts including lifestyle checklist, protein content of food, low calorie snacks, and cholesterol information sheet provided. Diagnostic testing/ SECA scale offered. Discussed the importance of regular SECA scale measurements to ensure healthy weight loss. 02/09/2025: Weight: 304, BMI: 43.6. Reviewed SECA/goals for implementing sustainable lifestyle changes. Patient is encouraged to increase physical activity, goal 8-10k steps/day. Also discussed the importance of strength training with proper safety/body mechanics for maintenance of muscle mass/bone health. Patient encouraged to drink 60-80oz water/day. Reviewed nutrition, recommending food diary x 1 week to ensure adequate caloric/protein intake. Goal of 80-100g protein/day. Reviewed risks, benefits, and side effects of weight management medications including phentermine, Topamax, Contrave, metformin, and GLP-1 agonist. Patient interested in GLP/GIP agonist Zepbound/family history of medullary thyroid cancer/M EN syndrome. Rx for Zepbound 2.5 mg SC weekly sent to pharmacy. Reviewed proper use, administration, and expectations for PA process/insurance coverage. After consultation and careful review of medical history, this patient would benefit from Zepbound based off of the following criteria met: Patient is over the age of 16 with a BMI of 43.6. Additional comorbidities include ÁLVARO. Patient has trialed other methods of weight loss including improving diet and exercise and bariatric surgery without success. This medication is prescribed by or in consultation with a board-certified obesity and weight management physician (Dr. Jovita Ann or Dr. Yady Ann). All questions answered to the patients satisfaction. Patient demonstrates understanding of diagnosis and treatments discussed. Follow-up at next scheduled appointment, sooner should any questions/concerns arise. Case discussed with collaborating physician Shoaib Ann who has reviewed the assessment/plan. Chart, medications, labs, and vital signs reviewed. Dictation completed with the use of [employer] voice recognition software, prone to medical misidentifications and grammatical errors. All errors are unintentional. Although the practitioner does try to identify and correct errors, some may be present. Please do not hesitate to contact the practitioner for clarification. Total time was 60 minutes spent with greater than 50% on coordination of care and patient education. 02/09/2025 Morbid obesity (ICD-10 - E66.01) Electronic Prior Authorization was requested for Wegovy 0.25 MG/0.5ML Solution Auto-injector. Provider can order medication once approval received. 02/09/2025 ÁLVARO on CPAP (ICD-10 - G47.33) Charlie is a 34-year-old male with a PMH ÁLVARO, history of bariatric surgery that presents for weight management consult. Patient was reassured and welcomed to the practice. Discussed [facility] holistic and medical approach to weight loss with emphasis on lifestyle modification. Patient is educated that a healthy lifestyle aids in combating obesity as well as reducing the risk of developing obesity-related medical complications including but not limited to diabetes and cardiovascular disease. Detailed education provided about taking steps to initiate sustainable lifestyle changes including incorporating regular physical activity, making healthy diet choices, and prioritizing mental health. Information provided about literature including The Food Rules by Carlo Kendall and Eat Fat Get Lean by Dr Chris Moran. Handouts including lifestyle checklist, protein content of food, low calorie snacks, and cholesterol information sheet provided. Diagnostic testing/ SECA scale offered. Discussed the importance of regular SECA scale measurements to ensure healthy weight loss. 02/09/2025: Weight: 304, BMI: 43.6. Reviewed SECA/goals for implementing sustainable lifestyle changes. Patient is encouraged to increase physical activity, goal 8-10k steps/day. Also discussed the importance of strength training with proper safety/body mechanics for maintenance of muscle mass/bone health. Patient encouraged to drink 60-80oz water/day. Reviewed nutrition, recommending food diary x 1 week to ensure adequate caloric/protein intake. Goal of 80-100g protein/day. Reviewed risks, benefits, and side effects of weight management medications including phentermine, Topamax, Contrave, metformin, and GLP-1 agonist. Patient interested in GLP/GIP agonist Zepbound/family history of medullary thyroid cancer/M EN syndrome. Rx for Zepbound 2.5 mg SC weekly sent to pharmacy. Reviewed proper use, administration, and expectations for PA process/insurance coverage. After consultation and careful review of medical history, this patient would benefit from Zepbound based off of the following criteria met: Patient is over the age of 16 with a BMI of 43.6. Additional comorbidities include ÁLVARO. Patient has trialed other methods of weight loss including improving diet and exercise and bariatric surgery without success. This medication is prescribed by or in consultation with a board-certified obesity and weight management physician (Dr. Jovita Ann or Dr. Yady Ann). All questions answered to the patients satisfaction. Patient demonstrates understanding of diagnosis and treatments discussed. Follow-up at next scheduled appointment, sooner should any questions/concerns arise. Case discussed with collaborating physician Shoaib Ann who has reviewed the assessment/plan. Chart, medications, labs, and vital signs reviewed. Dictation completed with the use of [employer] voice recognition software, prone to medical misidentifications and grammatical errors. All errors are unintentional. Although the practitioner does try to identify and correct errors, some may be present. Please do not hesitate to contact the practitioner for clarification. Total time was 60 minutes spent with greater than 50% on coordination of care and patient education. 03/07/2025 History of bariatric surgery (ICD-10 - Z98.84) Charlie is a 34-year-old male with a PMH ÁLVARO, history of bariatric surgery that presents for weight management follow up. Reviewed [facility] holistic and medical approach to weight loss with emphasis on lifestyle modification. 03/07/2025: Weight: 301, BMI: 43.2 (-3lbs) SECA reviewed, reveals 2 pounds of muscle loss and 1 pound of fat loss. Reviewed the importance of adequate caloric intake in the setting of GLP-1 induced appetite suppression. He is encouraged to continue hydrating adequately and exercising regularly. Discussed importance of adding strength training with goal of continued maintenance of muscle mass. Will attempt to appeal denial of GLP-1 and follow-up in 1 month. 02/09/2025: Weight: 304, BMI: 43.6. All questions answered to the patients satisfaction. Patient demonstrates understanding of diagnosis and treatments discussed. Follow-up at next scheduled appointment, sooner should any questions/concerns arise. Case discussed with collaborating physician Shoaib Ann who has reviewed the assessment/plan. Chart, medications, labs, and vital signs reviewed. Dictation completed with the use of [employer] voice recognition software, prone to medical misidentifications and grammatical errors. All errors are unintentional. Although the practitioner does try to identify and correct errors, some may be present. Please do not hesitate to contact the practitioner for clarification. Total time was 30 minutes spent with greater than 50% on coordination of care and patient education. 03/07/2025 ÁLVARO on CPAP (ICD-10 - G47.33) Charlie is a 34-year-old male with a PMH ÁLVARO, history of bariatric surgery that presents for weight management follow up. Reviewed [facility] holistic and medical approach to weight loss with emphasis on lifestyle modification. 03/07/2025: Weight: 301, BMI: 43.2 (-3lbs) SECA reviewed, reveals 2 pounds of muscle loss and 1 pound of fat loss. Reviewed the importance of adequate caloric intake in the setting of GLP-1 induced appetite suppression. He is encouraged to continue hydrating adequately and exercising regularly. Discussed importance of adding strength training with goal of continued maintenance of muscle mass. Will attempt to appeal denial of GLP-1 and follow-up in 1 month. 02/09/2025: Weight: 304, BMI: 43.6. All questions answered to the patients satisfaction. Patient demonstrates understanding of diagnosis and treatments discussed. Follow-up at next scheduled appointment, sooner should any questions/concerns arise. Case discussed with collaborating physician Shoaib Ann who has reviewed the assessment/plan. Chart, medications, labs, and vital signs reviewed. Dictation completed with the use of [employer] voice recognition software, prone to medical misidentifications and grammatical errors. All errors are unintentional. Although the practitioner does try to identify and correct errors, some may be present. Please do not hesitate to contact the practitioner for clarification. Total time was 30 minutes spent with greater than 50% on coordination of care and patient education. 02/09/2025 Vitamin D deficiency (ICD-10 - E55.9) Charlie is a 34-year-old male with a PMH ÁLVARO, history of bariatric surgery that presents for weight management consult. Patient was reassured and welcomed to the practice. Discussed [facility] holistic and medical approach to weight loss with emphasis on lifestyle modification. Patient is educated that a healthy lifestyle aids in combating obesity as well as reducing the risk of developing obesity-related medical complications including but not limited to diabetes and cardiovascular disease. Detailed education provided about taking steps to initiate sustainable lifestyle changes including incorporating regular physical activity, making healthy diet choices, and prioritizing mental health. Information provided about literature including The Food Rules by Carlo Kendall and Eat Fat Get Lean by Dr Chris Moran. Handouts including lifestyle checklist, protein content of food, low calorie snacks, and cholesterol information sheet provided. Diagnostic testing/ SECA scale offered. Discussed the importance of regular SECA scale measurements to ensure healthy weight loss. 02/09/2025: Weight: 304, BMI: 43.6. Reviewed SECA/goals for implementing sustainable lifestyle changes. Patient is encouraged to increase physical activity, goal 8-10k steps/day. Also discussed the importance of strength training with proper safety/body mechanics for maintenance of muscle mass/bone health. Patient encouraged to drink 60-80oz water/day. Reviewed nutrition, recommending food diary x 1 week to ensure adequate caloric/protein intake. Goal of 80-100g protein/day. Reviewed risks, benefits, and side effects of weight management medications including phentermine, Topamax, Contrave, metformin, and GLP-1 agonist. Patient interested in GLP/GIP agonist Zepbound/family history of medullary thyroid cancer/M EN syndrome. Rx for Zepbound 2.5 mg SC weekly sent to pharmacy. Reviewed proper use, administration, and expectations for PA process/insurance coverage. After consultation and careful review of medical history, this patient would benefit from Zepbound based off of the following criteria met: Patient is over the age of 16 with a BMI of 43.6. Additional comorbidities include ÁLVARO. Patient has trialed other methods of weight loss including improving diet and exercise and bariatric surgery without success. This medication is prescribed by or in consultation with a board-certified obesity and weight management physician (Dr. Jovita Ann or Dr. Yady Ann). All questions answered to the patients satisfaction. Patient demonstrates understanding of diagnosis and treatments discussed. Follow-up at next scheduled appointment, sooner should any questions/concerns arise. Case discussed with collaborating physician Shoaib Ann who has reviewed the assessment/plan. Chart, medications, labs, and vital signs reviewed. Dictation completed with the use of [employer] voice recognition software, prone to medical misidentifications and grammatical errors. All errors are unintentional. Although the practitioner does try to identify and correct errors, some may be present. Please do not hesitate to contact the practitioner for clarification. Total time was 60 minutes spent with greater than 50% on coordination of care and patient education. 02/09/2025 Elevated BP without diagnosis of hypertension (ICD-10 - R03.0) Charlie is a 34-year-old male with a PMH ÁLVARO, history of bariatric surgery that presents for weight management consult. Patient was reassured and welcomed to the practice. Discussed [facility] holistic and medical approach to weight loss with emphasis on lifestyle modification. Patient is educated that a healthy lifestyle aids in combating obesity as well as reducing the risk of developing obesity-related medical complications including but not limited to diabetes and cardiovascular disease. Detailed education provided about taking steps to initiate sustainable lifestyle changes including incorporating regular physical activity, making healthy diet choices, and prioritizing mental health. Information provided about literature including The Food Rules by Carlo Kendall and Eat Fat Get Lean by Dr Chris Moran. Handouts including lifestyle checklist, protein content of food, low calorie snacks, and cholesterol information sheet provided. Diagnostic testing/ SECA scale offered. Discussed the importance of regular SECA scale measurements to ensure healthy weight loss. 02/09/2025: Weight: 304, BMI: 43.6. Reviewed SECA/goals for implementing sustainable lifestyle changes. Patient is encouraged to increase physical activity, goal 8-10k steps/day. Also discussed the importance of strength training with proper safety/body mechanics for maintenance of muscle mass/bone health. Patient encouraged to drink 60-80oz water/day. Reviewed nutrition, recommending food diary x 1 week to ensure adequate caloric/protein intake. Goal of 80-100g protein/day. Reviewed risks, benefits, and side effects of weight management medications including phentermine, Topamax, Contrave, metformin, and GLP-1 agonist. Patient interested in GLP/GIP agonist Zepbound/family history of medullary thyroid cancer/M EN syndrome. Rx for Zepbound 2.5 mg SC weekly sent to pharmacy. Reviewed proper use, administration, and expectations for PA process/insurance coverage. After consultation and careful review of medical history, this patient would benefit from Zepbound based off of the following criteria met: Patient is over the age of 16 with a BMI of 43.6. Additional comorbidities include ÁLVARO. Patient has trialed other methods of weight loss including improving diet and exercise and bariatric surgery without success. This medication is prescribed by or in consultation with a board-certified obesity and weight management physician (Dr. Jovita Ann or Dr. Yady Ann). All questions answered to the patients satisfaction. Patient demonstrates understanding of diagnosis and treatments discussed. Follow-up at next scheduled appointment, sooner should any questions/concerns arise. Case discussed with collaborating physician Shoaib Ann who has reviewed the assessment/plan. Chart, medications, labs, and vital signs reviewed. Dictation completed with the use of [employer] voice recognition software, prone to medical misidentifications and grammatical errors. All errors are unintentional. Although the practitioner does try to identify and correct errors, some may be present. Please do not hesitate to contact the practitioner for clarification. Total time was 60 minutes spent with greater than 50% on coordination of care and patient education. 03/07/2025 Vitamin D deficiency (ICD-10 - E55.9) Charlie is a 34-year-old male with a PMH ÁLVARO, history of bariatric surgery that presents for weight management follow up. Reviewed [facility] holistic and medical approach to weight loss with emphasis on lifestyle modification. 03/07/2025: Weight: 301, BMI: 43.2 (-3lbs) SECA reviewed, reveals 2 pounds of muscle loss and 1 pound of fat loss. Reviewed the importance of adequate caloric intake in the setting of GLP-1 induced appetite suppression. He is encouraged to continue hydrating adequately and exercising regularly. Discussed importance of adding strength training with goal of continued maintenance of muscle mass. Will attempt to appeal denial of GLP-1 and follow-up in 1 month. 02/09/2025: Weight: 304, BMI: 43.6. All questions answered to the patients satisfaction. Patient demonstrates understanding of diagnosis and treatments discussed. Follow-up at next scheduled appointment, sooner should any questions/concerns arise. Case discussed with collaborating physician Shoaib Ann who has reviewed the assessment/plan. Chart, medications, labs, and vital signs reviewed. Dictation completed with the use of [employer] voice recognition software, prone to medical misidentifications and grammatical errors. All errors are unintentional. Although the practitioner does try to identify and correct errors, some may be present. Please do not hesitate to contact the practitioner for clarification. Total time was 30 minutes spent with greater than 50% on coordination of care and patient education. 03/07/2025 Elevated BP without diagnosis of hypertension (ICD-10 - R03.0) Charlie is a 34-year-old male with a PMH ÁLVARO, history of bariatric surgery that presents for weight management follow up. Reviewed [facility] holistic and medical approach to weight loss with emphasis on lifestyle modification. 03/07/2025: Weight: 301, BMI: 43.2 (-3lbs) SECA reviewed, reveals 2 pounds of muscle loss and 1 pound of fat loss. Reviewed the importance of adequate caloric intake in the setting of GLP-1 induced appetite suppression. He is encouraged to continue hydrating adequately and exercising regularly. Discussed importance of adding strength training with goal of continued maintenance of muscle mass. Will attempt to appeal denial of GLP-1 and follow-up in 1 month. 02/09/2025: Weight: 304, BMI: 43.6. All questions answered to the patients satisfaction. Patient demonstrates understanding of diagnosis and treatments discussed. Follow-up at next scheduled appointment, sooner should any questions/concerns arise. Case discussed with collaborating physician Shoaib Ann who has reviewed the assessment/plan. Chart, medications, labs, and vital signs reviewed. Dictation completed with the use of [employer] voice recognition software, prone to medical misidentifications and grammatical errors. All errors are unintentional. Although the practitioner does try to identify and correct errors, some may be present. Please do not hesitate to contact the practitioner for clarification. Total time was 30 minutes spent with greater than 50% on coordination of care and patient education. 02/09/2025 Nutritional counseling (ICD-10 - Z71.3) Charlie is a 34-year-old male with a PMH ÁLVARO, history of bariatric surgery that presents for weight management consult. Patient was reassured and welcomed to the practice. Discussed [facility] holistic and medical approach to weight loss with emphasis on lifestyle modification. Patient is educated that a healthy lifestyle aids in combating obesity as well as reducing the risk of developing obesity-related medical complications including but not limited to diabetes and cardiovascular disease. Detailed education provided about taking steps to initiate sustainable lifestyle changes including incorporating regular physical activity, making healthy diet choices, and prioritizing mental health. Information provided about literature including The Food Rules by Carlo Kendall and Eat Fat Get Lean by Dr Chris Moran. Handouts including lifestyle checklist, protein content of food, low calorie snacks, and cholesterol information sheet provided. Diagnostic testing/ SECA scale offered. Discussed the importance of regular SECA scale measurements to ensure healthy weight loss. 02/09/2025: Weight: 304, BMI: 43.6. Reviewed SECA/goals for implementing sustainable lifestyle changes. Patient is encouraged to increase physical activity, goal 8-10k steps/day. Also discussed the importance of strength training with proper safety/body mechanics for maintenance of muscle mass/bone health. Patient encouraged to drink 60-80oz water/day. Reviewed nutrition, recommending food diary x 1 week to ensure adequate caloric/protein intake. Goal of 80-100g protein/day. Reviewed risks, benefits, and side effects of weight management medications including phentermine, Topamax, Contrave, metformin, and GLP-1 agonist. Patient interested in GLP/GIP agonist Zepbound/family history of medullary thyroid cancer/M EN syndrome. Rx for Zepbound 2.5 mg SC weekly sent to pharmacy. Reviewed proper use, administration, and expectations for PA process/insurance coverage. After consultation and careful review of medical history, this patient would benefit from Zepbound based off of the following criteria met: Patient is over the age of 16 with a BMI of 43.6. Additional comorbidities include ÁLVARO. Patient has trialed other methods of weight loss including improving diet and exercise and bariatric surgery without success. This medication is prescribed by or in consultation with a board-certified obesity and weight management physician (Dr. Jovita Ann or Dr. Yady Ann). All questions answered to the patients satisfaction. Patient demonstrates understanding of diagnosis and treatments discussed. Follow-up at next scheduled appointment, sooner should any questions/concerns arise. Case discussed with collaborating physician Shoaib Ann who has reviewed the assessment/plan. Chart, medications, labs, and vital signs reviewed. Dictation completed with the use of [employer] voice recognition software, prone to medical misidentifications and grammatical errors. All errors are unintentional. Although the practitioner does try to identify and correct errors, some may be present. Please do not hesitate to contact the practitioner for clarification. Total time was 60 minutes spent with greater than 50% on coordination of care and patient education. 03/07/2025 Nutritional counseling (ICD-10 - Z71.3) Charlie is a 34-year-old male with a PMH ÁLVARO, history of bariatric surgery that presents for weight management follow up. Reviewed [facility] holistic and medical approach to weight loss with emphasis on lifestyle modification. 03/07/2025: Weight: 301, BMI: 43.2 (-3lbs) SECA reviewed, reveals 2 pounds of muscle loss and 1 pound of fat loss. Reviewed the importance of adequate caloric intake in the setting of GLP-1 induced appetite suppression. He is encouraged to continue hydrating adequately and exercising regularly. Discussed importance of adding strength training with goal of continued maintenance of muscle mass. Will attempt to appeal denial of GLP-1 and follow-up in 1 month. 02/09/2025: Weight: 304, BMI: 43.6. All questions answered to the patients satisfaction. Patient demonstrates understanding of diagnosis and treatments discussed. Follow-up at next scheduled appointment, sooner should any questions/concerns arise. Case discussed with collaborating physician Shoaib Ann who has reviewed the assessment/plan. Chart, medications, labs, and vital signs reviewed. Dictation completed with the use of [employer] voice recognition software, prone to medical misidentifications and grammatical errors. All errors are unintentional. Although the practitioner does try to identify and correct errors, some may be present. Please do not hesitate to contact the practitioner for clarification. Total time was 30 minutes spent with greater than 50% on coordination of care and patient education. Plan Of Treatment Next Appt Details Provider Name:YUDY Vaz, 04/13/2025 09:00:00 AM, [address] [address], [place], [address], Insurance Providers Payer Name Payer Address Payer Phone Subscriber Number Group Number Insured Name Patient Relationship to Insured Coverage Start Date Coverage End Date [facility] [address] [place] [address] [id number] Charlie Guillen Self - patient is the insured Medical (General) History Surgical History Surgery Date(Month/Year) Gastric sleeve 01/2024
== END 2025-03-14 14:51 | disposition home or self-care (01) ==
LOC: HO.HMCC 13:53
PROVIDERS: PCP Nurse Practitioner Family; Visit Provider Nurse Practitioner Family
DX: E78.5 Hyperlipidemia, unspecified (principal); Z90.3 Acquired absence of stomach [part of]

== ENCOUNTER → 2025-03-14 13:53 | Outpatient (BNVA) | payer OTHER, SELFPAY | PROVIDERS: PCP Nurse Practitioner Family; Visit Provider Nurse Practitioner Family | DX: E66.01 Morbid (severe) obesity due to excess calories (principal); E78.5 Hyperlipidemia, unspecified; Z98.84 Bariatric surgery status; Z68.38 Body mass index [BMI] 38.0-38.9, adult | CPT/HCPCS: 96127 ==

== ENCOUNTER 2025-04-06 08:53 | Outpatient (AMB) | payer OTHER, SELFPAY ==
--- NOTE | 2025-04-06 08:56 | MHC.OFFVIS ---
Vital Signs 04/06/25 08:57 Height 6 ft 3 in Weight 308 lb 4 oz BMI 38.5 BP 148/100 H Blood Pressure Location Rt brachial Position Sitting Pulse 78 Pulse Source Pulse Oximeter Pulse Oximetry (%) 98 Oxygen Delivery Method Room Air Intake Visit Reasons: 4 mnts f/u Intake Note: Patient presents follow up ÁLVARO. Compliance in chart(88/90days, >=4hrs-96%, Average Usage-5hr 39min, Med Pressure-6.1, Med Leaks-1.1, AHI-2.2) Videogame Tester Required: No Accompanied by: Self / Same As Patient Allergies No Known Allergies Allergy (Verified 04/06/25 08:57) HPI Comments Details: 34 y/o male patient presents for follow up ÁLVARO he is on CPAP therapy. 10/2024 HST c/w AHI of 5 and O2 desaturation to 82%. ÁLVARO compliance report 12/2024 to 03/2025 Total use 88/90 days and >4hours is 96% Avg use is 5 hours and 39min Med press 6.1 and Leaks 1.1 AHI is 2.2cmH20 He washes his mask, rinses hoses, changes filters, fills reservoir with water. PMH He had gastric bypass sleeve on January 2024, and he is now 297lbs, he used to weigh 333lbs prior to his surgery, now he feels more rested at night when using the cpap. Today he is in pain due to dental procedure and root canal, he wants to try using a mouth guard to create more space. His BP is elevated today at 148/100 and is in 9/10 pain. Denies bruxism, or morning headaches. Denies RLS symptoms. Denies muscle cramps or spasms. He is still pending ENT evaluation for h/o of polyps which cause nasal congestion and difficulty breathing. He is using his cpap daily and more consistently now as he is tryng to lose weight, walking and eating a better diet. He feels more alert since using the cpap, he is more physically active and actually started walking on the treadmill with a goal of 15,000 steps daily. He doesn't eat fast-food anymore, now he focuses on meal planning and has a protein shake in the morning, then one at lunch and a well balanced dinner with vegetables and proteins. His mood has improved, and memory is stable. [facility] Medical History Hyperlipidemia Morbid obesity Surgical History H/O gastric sleeve Hx of circumcision Family History Father No problems noted. Mother Stroke Diabetes mellitus HTN (hypertension) Brother No problems noted. Brother No problems noted. Sister No problems noted. Social History Housing: Apartment Alcohol intake: current Alcohol intake frequency: holidays/special occasions only Patient Tobacco Use Status: Never used Tobacco e-Cigarette/Vaping Use: Never Used Second Hand Smoke Exposure: No service: No Current occupational status: employed Current occupation: [employer] Current occupational exposures/hazards: Yes Cognitive needs: No Hearing needs: No Vision needs: No Physical Exam Vital Signs: Last Vital Signs Pulse 78 04/06/25 08:57 BP 148/100 H 04/06/25 08:57 Pulse Ox 98 04/06/25 08:57 Oxygen Delivery Method Room Air 04/06/25 08:57 BMI result Body Mass Index 38.5 Const General: cooperative and comfortable Nutritional Appearance: obese Orientation/consciousness: patient oriented x3 Eyes Pupils: Equal, round and reactive pupils present Neck Neck: Yes full ROM Resp Effort & Inspection: normal respiratory effort and able to speak in complete sentences Neuro General: patient oriented x3 and moves all extremities Cranial nerves: Yes Facial sensation intact/muscles of mastication intact, Yes Equal, round and reactive pupils present, Yes Normal accommodation reflex present, Yes Normal facial strength present, Yes Midline tongue present, Yes Ability to bilaterally rotate head present and Yes Ability to bilaterally elevate shoulders present Cognition (Neuro): normal cognition Gait exam (Neuro): Normal gait present Motor exam (neuro): 5/5 motor strength present throughout and Normal motor muscle tone present throughout Psych Appearance: grossly normal Insight: Good insight present (Psych) Judgement: Good judgement present (Psych) Results Reviewed Results Reviewed: ÁLVARO compliance report 12/2024 to 03/2025 Total use 88/90 days and >4hours is 96% Avg use is 5 hours and 39min Med press 6.1 and Leaks 1.1 AHI is 2.2cmH20 He washes his mask, rinses hoses, changes filters, fills reservoir with water. Assessment & Plan Assessment & Plan (1) Nasal polyps: Comment: ENT Code(s): J33.9 - Nasal polyp, unspecified Category: Medical Plan Mild ÁLVARO on cpap therapy and has refreshed sleep, continue cpap therapy and for over 4 hours daily. Nasal polyps ENT referral Labs reviewed with pt today. F/U 6months. Orders: Referrals Ear/Nose/Throat Referral G47.30 - Sleep apnea, unspecified, J33.9 - Nasal polyp, unspecified, R09.81 - Nasal congestion Patient Instructions: Sleep Hygiene provided: set a scheduled bedtime and wake time to help regulate the circadian rhythm and balance the release of pituitary hormones. Sleep in a dark room, temperatures below 68 degrees, and no devices n bed. Limit caffeinated products 6 hours prior to bed, and limit fluids 2-4 hours prior to bed. Gentle night yoga, diffusing essential oils, and playing soft music can be relaxing. Coding Level of Care Code Est Pt Level 4 (29315) Diagnoses Nasal polyps J33.9
[2025-04-06 08:57] VITALS: BP 148/100; PULSE 78; O2SAT 98; BMI 38.5
== END 2025-04-06 09:59 | disposition home or self-care (01) ==
LOC: HO.HSMS 08:54
PROVIDERS: PCP Nurse Practitioner Family; Visit Provider Physician Assistant Medical
DX: J33.9 Nasal polyp, unspecified (principal)
CPT/HCPCS: 99214

== ENCOUNTER → 2025-04-09 09:03 | Outpatient (BNVA) | payer SELFPAY | PROVIDERS: PCP Nurse Practitioner Family; Visit Provider Physician Assistant Medical | DX: Z02.79 Encounter for issue of other medical certificate (principal) ==